=== PATIENT | female | born 1965 | race Caucasian/White ===

== ENCOUNTER 2022-12-27 19:37 | Outpatient (REF) | payer BC, SELFPAY ==
[2023-01-02 15:08] LABS: Age Gdln ACOG Testing Note (.); HPV Aptima Negative (Negative); IGP, Aptima HPV, rfx 16/18,45 Note (.)
== END 2022-12-27 19:38 | disposition home or self-care (01) ==
LOC: LAB 19:37
PROVIDERS: Visit Provider Obstetrics & Gynecology
DX: Z01.419 Encounter for gynecological examination (general) (routine) without abnormal findings (principal)
CPT/HCPCS: 87624; G0145

== ENCOUNTER 2023-12-30 20:38 | Outpatient (REF) | payer BC, SELFPAY | END 2023-12-30 20:39 | disposition home or self-care (01) | LOC: LAB 20:38 | PROVIDERS: Visit Provider Obstetrics & Gynecology | DX: Z01.419 Encounter for gynecological examination (general) (routine) without abnormal findings (principal) | CPT/HCPCS: 87624; 88175 ==

== ENCOUNTER 2025-01-05 18:54 | Outpatient (REF) | payer BC, SELFPAY ==
--- OUTSIDE RECORDS SUMMARY | 2025-01-05 14:00 | XMS_ITS | Encounter Summary ---
Author Organization [facility] Address [address] [place] [address] Care Team Providers Care Courtroom Deputy Or Calendar Clerk Name Role Phone Seamus Groves MD Primary Care Provider [phone] Reason for Visit * Reason Comments Gynecologic Exam Encounter Details Date Type Department Care Team (Late st Contact Info) Description 01/05/2025 2:00 PM EDT Office Visit [facility] [place] [facility] [address] [place] [address] [place] [phone] Magan Evans DO [address] [facility] [place] [address] Well woman exam with routine gynecological exam; Breast cancer screening by mammogram; Osteoporosis, post-menopausal Social History Tobacco Use Types Packs/Day Years Used Date Smoking Tobacco: Former Cigarettes Alcohol Use Standard Drinks/Week Comments Never 0 (1 standard drink = 0.6 oz pur e alcohol) Comments No Sex and Gender Information Value Date Recorded Sex Assigned at Not on file Legal Sex Female 6:47 PM EDT Gender Identity Not on file Sexual Orientation Not on file documented as of this encounter Last Filed Vital Signs Vital Sign Reading Time Taken Comments Blood Pressure 122/78 01/05/2025 2:29 PM EDT Pulse - - Temperature - - Respiratory Rate - - Oxygen Saturation - - Inhaled Oxygen Concentration - - Weight 84.8 kg (187 lb) 01/05/2025 2:29 PM EDT Height 157.5 cm (5' 2 ) 01/05/2025 2:29 PM EDT Body Mass Index 34.2 01/05/2025 2:29 PM EDT documented in this encounter Plan of Treatment Upcoming Encounters Date Type Department Care Team (Late st Contact Info) Description 01/12/2026 2:00 PM EDT Procedure Visit [facility] [address] [place] [place] [address] Magan Evans DO [address] [facility] [place] [address] Scheduled Orders Name Type Priority Associated Diagnoses Orde r Schedule Bilateral screening mammogram Imaging Routine Breast cancer screening by mammogram Expected: 01/05/2025 (Approximate), Expires: 03/07/2026 DEXA bone density Imaging Routine Osteoporosis, post-menopausal Expected: 01/05/2025 (Approximate), Expires: 01/05/2026 THIN PREP TIS PAP AND HR HPV DNA Pathology and Cytology Routine Well woman exam with routine gynecological exam Ordered: 01/05/2025 documented as of this encounter Visit Diagnoses Diagnosis Well woman exam with routine gynecological exam Routine gynecological examination Breast cancer screening by mammogram Osteoporosis, post-menopausal Senile osteoporosis documented in this encounter Care Teams Courtroom Deputy Or Calendar Clerk Relationship Specialty Start Date End Date Seamus Groves MD PCP - General Family Medicine 12/27/22 documented as of this encounter
--- OUTSIDE RECORDS SUMMARY | 2025-01-05 18:57 | XMS_ITS | Clinical Summary ---
Author Organization [employer] tem Address [id number] [address] [place] [address] Care Team Providers Care Internal Investigator Name Role Phone Seamus Groves MD Primary Care Provider [phone] Allergies No known active allergies Medications nystatin (MYCOSTATIN) powderIndicatio ns:Intertrigino us candidiasis Apply 1 Application topically in the morning and 1 Application before bedtime. 30 g 12/27/19 24 Active Additional Information Patient not taking.Reported on 08/06/2024 glimepiride (AMARYL) 1 mg tabletIndicatio ns:Type 2 diabetes mellitus without complication, without long-term current use of insulin ([facility]) take 1 tablet by mouth twice a day with food 180 tablet 3 02/03/20 24 Active albuterol (PROVENTIL HFA;VENTOLIN HFA) 90 mcg/actuation inhaler Inhale 2 puffs every 6 (six) hours as needed for wheezing. 18 g 08/27/19 25 Active empagliflozin (JARDIANCE) 10 mg tablet tabletIndicatio ns:Type 2 diabetes mellitus without complication, without long-term current use of insulin ([facility]) Take 1 tablet (10 mg total) by mouth in the morning. 90 tablet 1 11/04/19 25 Active ALPRAZolam (XANAX) 0.5 mg tabletIndicatio ns:Anxiety Take 1 tablet (0.5 mg total) by mouth every 12 (twelve) hours as needed for anxiety. 60 tablet 2 11/14/19 25 Active metFORMIN (GLUCOPHAGE) 500 mg tablet Take 2 tablets (1,000 mg total) by mouth in the morning and 2 tablets (1,000 mg total) before bedtime. 360 tablet 1 12/31/19 25 Active pantoprazole (PROTONIX) 40 mg EC tablet Take 1 tablet (40 mg total) by mouth in the morning and at bedtime. 180 tablet 1 12/31/19 25 Active atorvastatin (LIPITOR) 20 mg tablet Take 1 tablet (20 mg total) by mouth every morning. 90 tablet 1 12/31/19 25 Active amLODIPine (NORVASC) 10 mg tablet Take 1 tablet (10 mg total) by mouth every morning. 90 tablet 1 12/31/19 25 Active lisinopril-hydr oCHLOROthiazide (PRINZIDE,ZESTO RETIC) 20-25 mg per tablet Take 1 tablet by mouth in the morning. 90 tablet 1 12/31/19 25 Active cyclobenzaprine (FLEXERIL) 10 mg tablet Take 1 tablet (10 mg total) by mouth nightly. 90 tablet 1 12/31/19 25 Active pantoprazole (PROTONIX) 40 mg EC tablet TAKE 1 TABLET (40 MG TOTAL) BY MOUTH IN THE MORNING AND BEFORE BEDTIME 180 tablet 3 01/07/20 24 025 Discontinued atorvastatin (LIPITOR) 20 mg tablet take 1 tablet by mouth every day 90 tablet 3 01/07/20 24 025 Discontinued metFORMIN (GLUCOPHAGE) 500 mg tablet TAKE 2 TABLETS (1,000 MG TOTAL) BY MOUTH IN THE MORNING AND BEFORE BEDTIME. 360 tablet 3 01/07/20 24 025 Discontinued amLODIPine (NORVASC) 10 mg tablet take 1 tablet by mouth every day 90 tablet 3 01/15/20 24 025 Discontinued lisinopril-hydr oCHLOROthiazide (PRINZIDE,ZESTO RETIC) 20-25 mg per tablet take 1 tablet by mouth every day in the morning 90 tablet 3 01/20/20 24 025 Discontinued cyclobenzaprine (FLEXERIL) 10 mg tablet TAKE 1 TABLET BY MOUTH EVERY DAY AT NIGHT 90 tablet 2 04/03/20 24 025 Discontinued Active Problems Problem Noted Date Diagnosed Date Aortic valve stenosis 07/24/2022 Type 2 diabetes mellitus wit hout complication, without long-term current use of insulin 06/30/2020 Essential hypertension 06/30/2020 Mixed hyperlipidemia 06/30/2020 Anxiety 06/30/2020 Encounters Date Type Department Care Team Description 12/30/2024 Refill [facility] [address] [place] [address] Seamus Groves MD 12/01/2024 Telephone [facility] [address] [place] [address] Mary Canseco RMA 11/13/2024 Refill [facility] [address] [place] [address] Mary Canseco RMA Anxiety 10/31/2024 Refill [facility] [address] [place] [address] Seamus Groves MD Type 2 diabetes mellitus without complication, without long-term current use of insulin ([facility]) from Last 3 Months Immunizations Immunization Administration Dates Next Due COVID-19, mRNA, LNP-S, PF, 1 00mcg/0.5mL Dose 03/23/2021,09/14/2020,08/17/2020 COVID-19, mRNA, LNP-S, PF, 30mcg/0.3mL Dose 01/26 Influenza (IM) Preservative Free 05/12/2015 Influenza, Im Trivalent Preservative 03/23/2021 Influenza, Injectable, Mdck, Preservative Free, Quad 02/18/2023 Influenza, Injectable, Quadrivalent 05/03/2020 Influenza, Injectable, quadrivalent (PF) 022,03/12/2017 Family History Medical History Relation Name Comments Diabetes Brother Lung cancer Brother Breast cancer Cousin Heart disease Father Diabetes Maternal Grandfather Diabetes Maternal Grandmother Colon cancer Mother Diabetes Mother Diabetes Sister 1 Liver cancer Sister 1 Alzheimer's disease Sister 2 Relation Name Status Comments Brother Cousin Father Maternal Grandfather Maternal Grandmother Mother Sister 1 Sister 2 Social History Tobacco Use Types Packs/Day Years Used Date Smoking Tobacco: Former Cigarettes Smokeless Tobacco: Never Tobacco Cessation:Counseling Given: No Comments:QUIT 1 YEAR AGO Alcohol Use Standard Drinks/Week Comments Not Currently 0 (1 standard drink = 0.6 oz pur e alcohol) PHQ-2 Answer Date Recorded Total Score 6 08/06/2024 Childcare Answer Date Recorded Childcare Unknown 11/05/2018 Employment Answer Date Recorded Employment Unknown 11/05/2018 Hunger Screening Answer Date Recorded Within the past 12 months we worried whether our food would run out before we got money to buy more. Never True 08/06/2024 Within the past 12 months th e food we bought just didn't last and we didn't have money to get more. Never True 08/06/2024 Purpose - Life Answer Date Recorded Purpose and direction in life Unknown Comments No Sex and Gender Information Value Date Recorded Sex Assigned at Not on file Legal Sex Female 11:26 AM EDT Gender Identity Not on file Sexual Orientation Not on file Last Filed Vital Signs Vital Sign Reading Time Taken Comments Blood Pressure 138/78 08/06/2024 2:37 PM EDT Pulse 117 08/06/2024 2:37 PM EDT Temperature 37.1 C (98.7 F) 08/06/2024 2:37 PM EDT Respiratory Rate 18 08/06/2024 2:37 PM EDT Oxygen Saturation 97% 08/06/2024 2:37 PM EDT Inhaled Oxygen Concentration - - Weight 85.8 kg (189 lb 3.2 oz) 08/06/2024 2:37 P M EDT Height 152.4 cm (5') 08/06/2024 2:37 PM EDT Body Mass Index 36.95 08/06/2024 2:37 PM EDT Plan of Treatment Upcoming Encounters Date Type Department Care Team (Late st Contact Info) Description 01/07/2025 2:30 PM EDT Office Visit [facility] [address] [place] [address] [address] [place] [address] Seamus Groves MD [address] [place] [address], [address] [place] [address] Health Maintenance Due Date Last Done Comments Adult BMI Follow Up Plan 02/06/1982 Diabetic Foot Exam 02/06/1982 DTaP,Tdap and Td Vaccines (1 - Tdap) 02/06/1983 Zoster (Shingles) Vaccine (1 of 2) 02/06/2014 COVID-19 Vaccine (2023-2 5 season) 2024 02/18/2023, 04/16/2022, 03/23/2021, Additional history exists Mammogram 10/28/2024 10/29/2023, 06/0 08/2023, 08/24/2022, Additional history exists Pap Smear 12/29/2024 12/30/2023, 08/0 07/2022, 12/07/2018 Influenza Vaccine 01/25/2025 02/18/2023, , 03/23/2021, Additional history exists Diabetic Ophthalmology Exam 05/29/2025 05/29/2024, 1 06/27/2022 Adult BMI Screening 08/06/2025 08/06/2024 Depression Screening 08/06/2025 08/06/2024 Tobacco Screening 08/06/2025 08/06/2024 Statin Use: Diabetic 12/30/2025 12/30/2024 Colonoscopy 01/22/2029 01/23/2024, 12/26, 01/12/2019, Additional history exists Medical Devices Not on file Procedures Procedure Name Priority Date/Time Associated Diagnosis Comments DIABETES EYE EXAM Routine 05/29/2024 PROVATION COLONOSCOPY Routine 01/23/2024 6:32 AM EDT MAMM DIAGNOSTIC BILATERAL W CAD Routine 10/29/2023 9:21 AM EDT Mass of left breast, unspecified quadrant from Last 3 Months or Most Recently Relevant to Health Maintenance Results * HM DIABETES EYE EXAM (05/29/2024) 05/29/2024 us Scanning Provider External HEALTH MAINTENANCE Fi nal Result MANUALLY TRANSCRIBED RESULTS * Colonoscopy Report (01/23/2024 6:32 AM EDT) Narrative SYSTEMGENERATED, DOCUMENTATION - 01/23/2024 6:32 AM EDT This order has been auto-finalized for image and report archival in PACs. *For full report details, please reach out to your physician. This image is visible to you in MyChart.* us Raman Marin DO IMG OR IMG ORDERABLES Final Result * Mammography diagnostic bilateral with CAD (10/29/2023 9:21 AM EDT) Anatomical Region Laterality Modality Breast Bilateral Mammography 10/29/2023 9:36 AM EDT Narrative 10/29/2023 9:38 AM EDT EXAM: MAMM DIAGNOSTIC BILATERAL W CAD, US BREAST LT LIMITED, 10/29/2023 9:02 AM CLINICAL INDICATIONS: Tenderness of left breast, unspecified quadrant, COMPARISON: Mammogram 08/24/2022 TECHNIQUE: Bilateral digital tomosynthesis MLO and CC views of the breasts were obtained, with creation of synthetic 2D views. Computer aided detection was utilized. In addition, targeted sonography of the left breast 6:00 position performed at the site of tenderness. FINDINGS: There are scattered areas of fibroglandular density. On mammography and targeted sonography, no abnormality seen at the site of pain at the 6:00 position left breast. There are no suspicious masses, calcifications, or areas of architectural distortions. IMPRESSION: No mammographic evidence of malignancy. BI-RADS: BI-RADS 1 - Negative Recommendation: Routine screening mammogram in 1 year Patient was given the results before leaving the department. Finalized by Rohan Estrada MD on 10/29/2023 9:38 AM 1 b MAMM 1 YR Procedure Note Rohan Estrada MD - 10/29/2023 EXAM: MAMM DIAGNOSTIC BILATERAL W CAD, US BREAST LT LIMITED, 10/29/2023 9:02AM CLINICAL INDICATIONS: Tenderness of left breast, unspecified quadrant, COMPARISON: Mammogram 08/24/2022 TECHNIQUE: Bilateral digital tomosynthesis MLO and CC views of the breasts wereobtained, with creation of synthetic 2D views. Computer aided detectionwas utilized. In addition, targeted sonography of the left breast 6:00position performed at the site of tenderness. FINDINGS: There are scattered areas of fibroglandular density. On mammography and targeted sonography, no abnormality seen at the site ofpain at the 6:00 position left breast. There are no suspicious masses, calcifications, or areas of architecturaldistortions. IMPRESSION: No mammographic evidence of malignancy. BI-RADS: BI-RADS 1 - Negative Recommendation: Routine screening mammogram in 1 year Patient was given the results before leaving the department. Finalized by Rohan Estrada MD on 10/29/2023 9:38 AM 1 b MAMM 1 YR us Seamus Groves MD IMG MAMMOGRAPHY ORDERABLES Fi nal Result from Last 3 Months or Most Recently Relevant to Health Maintenance Insurance [employer] Care Teams Internal Investigator Relationship Specialty Start Date End Date Seamus Groves MD [address] [place] [address], [address] [place] [address] PCP - General Pediatrics 03/18/17
--- OUTSIDE RECORDS SUMMARY | 2025-01-05 18:57 | XMS_ITS | Encounter Summary ---
Author Organization [employer] Address [id number] [address] [place] [address] Care Team Providers Care Forest Fire Management Officer Name Role Phone Seamus Groves MD Primary Care Provider [phone] Encounter Details Date Type Department Care Team (Late Contact Info) Description 09/06/2020 Orders Only [facility] [address] [place] [address] [address] [place] [address] Seamus Groves MD [address] [place] [address], [address] [place], [place] [id number] Febrile illness Social History Tobacco Use Types Packs/Day Years Used Date Smoking Tobacco: Former Cigarettes Smokeless Tobacco: Never Comments:QUIT 1 YEAR AGO Alcohol Use Standard Drinks/Week Comments Yes 0 (1 standard drink = 0.6 oz pur e alcohol) RARE PHQ-2 Answer Date Recorded Total Score 0 06/30/2020 Childcare Answer Date Recorded Childcare Unknown 11/05/2018 Employment Answer Date Recorded Employment Unknown 11/05/2018 Purpose - Life Answer Date Recorded Purpose and direction in life Unknown Comments No Sex and Gender Information Value Date Recorded Sex Assigned at Not on file Legal Sex Female 11:26 AM EDT Gender Identity Not on file Sexual Orientation Not on file COVID-19 Exposure Response Date Recorded In the last month, have you been in contact with someone who was confirmed or suspected to have Coronavirus / COVID-19? No / Unsure 08/09/2020 2:12 PM EDT documented as of this encounter Plan of Treatment Upcoming Encounters Date Type Department Care Team (Late st Contact Info) Description 01/07/2025 2:30 PM EDT Office Visit [facility] [address] [place] [address] [address] [place] [phone] Seamus Groves MD [facility], [address] [place] [phone] documented as of this encounter Procedures Procedure Name Priority Date/Time Associated Diagnosis Comments SARS COV 2 (COVID-19) STAT 09/05/2020 Febrile illness documented in this encounter Results * SARS COV 2 (COVID-19)[Lab Collect] (09/05/2020) EXTERNAL SARS COV 2 Negative Negative SUNQUEST NASOPHARYNGEAL 09/05/2020 us Seamus Groves MD MICROBIOLOGY - GENERAL ORDERA BLES Final Result SUNQUEST documented in this encounter Visit Diagnoses Diagnosis Febrile illness documented in this encounter Additional Health Concerns Infection Onset Date Last Indicated Resolved Time COVID-19 Rule-Out 09/06/2020 09/05/2020 09/06/2020 3:09 PM EDT Assessment Noted Time PHQ-9 Depression Total Score: 0 06/30/19 21 12:26 PM EST documented as of this encounter Care Teams Forest Fire Management Officer Relationship Specialty Start Date End Date Seamus Groves MD [facility], [address] [place] [phone] PCP - General Pediatrics 03/18/17 documented as of this encounter
--- OUTSIDE RECORDS SUMMARY | 2025-01-05 18:57 | XMS_ITS | Clinical Summary ---
Author Organization [facility] Address [address] [place] [address] Care Team Providers Care Log Manager Name Role Phone Seamus Groves MD Primary Care Provider [phone] Allergies No known active allergies Medications ALPRAZolam (Xanax) 0.5 MG tablet Take 0.5 mg by mouth every 12 (twelve) hours if needed. 12/20/2022 Active amLODIPine (Norvasc) 10 MG tablet Take 1 tablet by mouth in the morning. 08/01/2022 Active atorvastatin (Lipitor) 20 MG tablet Take 1 tablet by mouth in the morning. 07/20/2022 Active cyclobenzaprine (Flexeril) 10 MG tablet Take 10 mg by mouth at bedtime. 12/20/2022 Active glimepiride (Amaryl) 1 MG tablet Take 1 tablet by mouth in the morning and 1 tablet in the evening. Take with meals. 08/13/2022 Active lisinopril-hydr oCHLOROthiazide 20-25 MG tablet Take 1 tablet by mouth in the morning. 08/01/2022 Active metFORMIN (Glucophage) 500 MG tablet TAKE 2 TABLETS (1,000 MG TOTAL) BY MOUTH IN THE MORNING AND BEFORE BEDTIME. 07/25/2022 Active pantoprazole (ProtoNix) 40 MG EC tablet Take 1 tablet by mouth in the morning. 08/01/2022 Active Encounters Date Type Department Care Team Description 01/05/2025 2:00 PM EDT Office Visit [facility] [place] [facility] [address] [place] [address] [place] [phone] Magan Evans DO Well woman exam with routine gynecological exam; Breast cancer screening by mammogram; Osteoporosis, post-menopausal 01/05/2025 Bamboo flowsheet [facility] [address] [place] [address] [place] [address] Magan Evans DO from Last 3 Months Family History Medical History Relation Name Comments Cancer Mother liver, uterus Diabetes Mother Hypertension Mother Relation Name Status Comments Father Mother Social History Tobacco Use Types Packs/Day Years Used Date Smoking Tobacco: Former Cigarettes Tobacco Cessation:Counseling Given: Not Answered Alcohol Use Standard Drinks/Week Comments Never 0 [...] Mass Index 34.2 01/05/2025 2:29 PM EDT Plan of Treatment Upcoming Encounters Date Type Department Care Team (Late st Contact Info) Description 01/12/2026 2:00 PM EDT Procedure Visit [facility] [address] [place] [address] Magan Evans DO [address] [facility] [place] [address] Health Maintenance Due Date Last Done Comments CT Colonography 1964 FIT-DNA 1964 FIT 1964 FOBT 1965 Sigmoidoscopy 1965 Mammogram 10/28/2024 10/29/2023, 07/27, 08/09/2021, Additional history exists Influenza Vaccine (#1) 2025 , 04/16/2022, 03/23/2021, Additional history exists Pap Smear 12/29/2026 12/30/2023, 12/27/2022, 11/24 Cervical Cancer Screening 01/10/2028 HPV/Cotest 01/10/2028 01/09/2023 Colonoscopy 01/22/2034 01/23/2024 Colorectal Cancer Screening 01/22/2034 Procedures Procedure Name Priority Date/Time Associated Diagnosis Comments PAP SMEAR Routine 12/30/2023 12:00 AM EDT THINPREP PAP AND HPV MRNA E6/E7 W/RFL HPV 16,18/45 Routine 01/09/2023 2:08 PM EDT Well woman exam with routine gynecological exam from Last 3 Months or Most Recently Relevant to Health Maintenance Results * Pap Smear (12/30/2023 12:00 AM EDT) Swab Cervical swab / Unknown us Magan Cristina DO LAB CYTOLOGY ORDERABLES Final Re sult Performing Organization Address City/[facility]/ZIP Co de Phone Number EXTERNAL LAB * THINPREP PAP AND HPV MRNA E6/E7 W/RFL HPV 16,18/45 (01/09/2023 2:08 PM EDT) us Magan Cristina DO LAB BLOOD ORDERABLES Final Resul t Performing Organization Address City/[facility]/ZIP Co de Phone Number EXTERNAL LAB from Last 3 Months or Most Recently Relevant to Health Maintenance Insurance [facility] Care Teams Log Manager Relationship Specialty Start Date End Date Seamus Groves MD PCP - General Family Medicine 12/27/22
--- OUTSIDE RECORDS SUMMARY | 2025-01-05 18:57 | XMS_ITS | Encounter Summary ---
Author Organization [employer] Address [id number] [address] [place] [address] Care Team Providers Care Deputy Bailiff Name Role Phone Seamus Groves MD Primary Care Provider [phone] Reason for Visit * Reason Onset Date Comments Med Refill 08/18/2020 Encounter Details Date Type Department Care Team (Late st Contact Info) Description 08/18/2020 Refill [facility] [address] [place] [address] [address] [place] [phone] Seamus Groves MD [address] [place] [address], [address] [place], [place] [id number] Social History Tobacco Use Types Packs/Day Years [...] PM EDT documented as of this encounter Miscellaneous Notes * Telephone Encounter - VIDA Booker - 08/18/2020 12:38 PM EDT Already sent documented in this encounter Plan of Treatment Upcoming Encounters Date Type Department Care Team (Late st Contact Info) Description 01/07/2025 2:30 PM EDT Office Visit [facility] [address] [place] [address] [address] [place] [address] Seamus Groves MD [address] [place] [address], [address] [place], [place] [phone] documented as of this encounter Visit Diagnoses Not on filedocumented in this encounter Additional Health Concerns Infection Onset Date Last Indicated Resolved Time COVID-19 Rule-Out 09/06/2020 09/05/2020 09/06/2020 3:09 PM EDT Assessment Noted Time PHQ-9 Depression Total Score: 0 06/30/19 21 12:26 PM EST documented as of this encounter Care Teams Deputy Bailiff Relationship Specialty Start Date End Date Seamus Groves MD [address] [place] [address], [address] [place] [address] PCP - General Pediatrics 03/18/17 documented as of this encounter
--- OUTSIDE RECORDS SUMMARY | 2025-01-05 18:57 | XMS_ITS | Encounter Summary ---
Author Organization [place] Sys tem Address [id number] [address] [place] [address] Care Team Providers Care Salmon Troll Fisher Name Role Phone Seamus Groves MD Primary Care Provider [phone] Reason for Visit * Reason Comments Med Refill Encounter Details Date Type Department Care Team (Late st Contact Info) Description 11/20/2023 Refill [facility] [address] [place] [phone] Seamus Groves MD [address] [place] [address], [address] [place], [place] [id number] Social History Tobacco Use Types Packs/Day Years Used Date Smoking Tobacco: Former Cigarettes Smokeless Tobacco: Never Comments:QUIT 1 YEAR AGO Alcohol Use Standard Drinks/Week Comments Yes 0 (1 standard drink = 0.6 oz pur e alcohol) RARE PHQ-2 Answer Date Recorded Total Score 0 12/25/2022 Childcare Answer Date Recorded Childcare Unknown 11/05/2018 Employment Answer Date Recorded Employment Unknown 11/05/2018 Hunger Screening Answer Date Recorded Within the past 12 months we worried whether our food would run out before we got money to buy more. Never True 12/25/2022 Within the past 12 months th e food we bought just didn't last and we didn't have money to get more. Never True 12/25/2022 Purpose - Life Answer Date Recorded Purpose and direction in life Unknown Comments No Sex and Gender Information Value Date Recorded Sex Assigned at Not on file Legal Sex Female 11:26 AM EDT Gender Identity Not on file Sexual Orientation Not on file documented as of this encounter Miscellaneous Notes * Telephone Encounter - Shoshana Rodriguez CMA - 11/20/2023 12:46 AM EDT Too soon to refill documented in this encounter Plan of Treatment Upcoming Encounters Date Type Department Care Team (Late st Contact Info) Description 01/07/2025 2:30 PM EDT Office Visit [facility] [address] [place] [address] [address] [place] [address] Seamus Groves MD [address] [place] [address], [address] [place], [place] [phone] documented as of this encounter Visit Diagnoses Not on filedocumented in this encounter Additional Health Concerns Assessment Noted Time PHQ-9 Depression Total Score: 0 12/26/19 23 1:32 PM EDT documented as of this encounter Care Teams Salmon Troll Fisher Relationship Specialty Start Date End Date Seamus Groves MD [address] [place] [address], [address] [place], [place] [phone] PCP - General Pediatrics 03/18/17 documented as of this encounter
--- OUTSIDE RECORDS SUMMARY | 2025-01-05 18:57 | XMS_ITS | Encounter Summary ---
Author Organization [employer] Sys [employer] Address [id number] [address] [place] [address] Care Team Providers Care Learning Coach Name Role Phone Seamus Groves MD Primary Care Provider [phone] Reason for Visit * Reason Comments Med Refill Encounter Details Date Type Department Care Team (Late st Contact Info) Description 01/12/2023 Refill [facility] [address] [place] [address] Seamus Groves MD [address] [place] [address], [address] [place], [place] [phone] Social History Tobacco Use Types Packs/Day Years [...] Telephone Encounter - Shoshana Rodriguez CMA - 01/12/2023 7:45 AM EDT Too soon to refill documented in this encounter Plan of Treatment Upcoming Encounters Date Type Department Care Team (Late st Contact Info) Description 01/07/2025 2:30 PM EDT Office Visit [facility] [address] [place] [address] [address] [place] [address] Seamus Groves MD [address] [place] [address], [address] [place], [place] [phone] documented as of this encounter Visit Diagnoses Not on filedocumented in this encounter Additional Health Concerns Assessment Noted Time PHQ-9 Depression Total Score: 0 12/26/19 1:32 PM EDT documented as of this encounter Care Teams Learning Coach Relationship Specialty Start Date End Date Seamus Groves MD [address] [place] [address], [address] [place] [phone] PCP - General Pediatrics 03/18/17 documented as of this encounter
--- OUTSIDE RECORDS SUMMARY | 2025-01-05 18:57 | XMS_ITS | Encounter Summary ---
Author Organization [facility] Address [address] [place] [address] Care Team Providers Care Pattern Changer Name Role Phone Seamus Groves MD Primary Care Provider [phone] Encounter Details Date Type Department Care Team (Late Contact Info) Description 01/08/2024 Orders Only [facility] [address] [place] [address] [place] [address] Emily [place] LPN Social History Tobacco Use Types Packs/Day Years [...] on file documented as of this encounter Plan of Treatment Upcoming Encounters Date Type Department Care Team (Late Contact Info) Description 01/12/2026 2:00 PM EDT Procedure Visit [facility] [address] [place] [address] [place] [address] Magan Evans DO [address] [facility] [address] [place], [place] [id number] documented as of this encounter Procedures Procedure Name Priority Date/Time Associated Diagnosis Comments PAP SMEAR Routine 12/30/2023 12:00 AM EDT documented in this encounter Results * Pap Smear (12/30/2023 12:00 AM EDT) Swab Cervical swab / Unknown us Magan Evans DO LAB CYTOLOGY ORDERABLES Final Re sult EXTERNAL LAB documented in this encounter Visit Diagnoses Not on filedocumented in this encounter Care Teams Pattern Changer Relationship Specialty Start Date End Date Seamus Groves MD PCP - General Family Medicine 12/27/22 documented as of this encounter
--- OUTSIDE RECORDS SUMMARY | 2025-01-05 18:57 | XMS_ITS | Encounter Summary ---
Author Organization [employer] Sys tem Address [id number] [address] [place] [address] Care Team Providers Care Unit Assistant Name Role Phone Seamus Groves MD Primary Care Provider [phone] Encounter Details Date Type Department Care Team (Late st Contact Info) Description 04/29/2023 Orders Only [facility] Aurelio CASTRO [facility] 1 [place] [phone] External, Scanning Provider Social History Tobacco Use Types Packs/Day Years [...] EDT Office Visit [facility] Aurelio CASTRO [address] [place] [address] Seamus Groves MD [address] [place] [address], [address] [place], [place] [phone] documented as of this encounter Procedures Procedure Name Priority Date/Time Associated Diagnosis Comments DIABETES EYE EXAM Routine 04/26/2023 documented in this encounter Results * DIABETES EYE EXAM (04/26/2023) 04/26/2023 us Scanning Provider External HEALTH MAINTENANCE nal Result MANUALLY TRANSCRIBED RESULTS documented in this encounter Visit Diagnoses Not on filedocumented in this encounter Additional Health Concerns Assessment Noted Time PHQ-9 Depression Total Score: 0 12/26/19 23 1:32 PM EDT documented as of this encounter Care Teams Unit Assistant Relationship Specialty Start Date End Date Seamus Groves MD [address] [place] [address], [address] [place], [place] [phone] PCP - General Pediatrics 03/18/17 documented as of this encounter
--- OUTSIDE RECORDS SUMMARY | 2025-01-05 18:57 | XMS_ITS | Encounter Summary ---
Author Organization [employer] Sys [employer] Address [id number] [address] [place] [address] Care Team Providers Care Technical Education Teacher Name Role Phone Seamus Groves MD Primary Care Provider [phone] Encounter Details Date Type Department Care Team (Late st Contact Info) Description 06/02/2024 Orders Only [facility] Aurelio CASTRO [facility] 1 [place] [phone] External, Scanning Provider Social History Tobacco Use Types Packs/Day Years Used Date Smoking Tobacco: Former Cigarettes Smokeless Tobacco: Never Comments:QUIT 1 YEAR AGO Alcohol Use Standard Drinks/Week Comments Not Currently 0 (1 standard drink = 0.6 oz pur e alcohol) PHQ-2 Answer Date Recorded Total Score 0 12/27/2023 Childcare Answer Date Recorded Childcare Unknown 11/05/2018 Employment Answer Date Recorded Employment Unknown 11/05/2018 Hunger Screening Answer Date Recorded Within the past 12 months we worried whether our food would run out before we got money to buy more. Never True 12/27/2023 Within the past 12 months th e food we bought just didn't last and we didn't have money to get more. Never True 12/27/2023 Purpose - Life Answer Date Recorded Purpose [...] Physicians Internal Medicine/Pediatrics Aurelio CASTRO [address] [place] [address] Seamus Groves MD [address] [place] [address], [address] [place], [place] [phone] documented as of this encounter Procedures Procedure Name Priority Date/Time Associated Diagnosis Comments DIABETES EYE EXAM Routine 05/29/2024 documented in this encounter Results * DIABETES EYE EXAM (05/29/2024) 05/29/2024 us Scanning Provider External HEALTH MAINTENANCE nal Result MANUALLY TRANSCRIBED RESULTS documented in this encounter Visit Diagnoses Not on filedocumented in this encounter Additional Health Concerns Assessment Noted Time PHQ-9 Depression Total Score: 0 12/27/19 24 1:19 PM EDT documented as of this encounter Care Teams Technical Education Teacher Relationship Specialty Start Date End Date Seamus Groves MD [address] [place] [address], [address] [place], [place] [phone] PCP - General Pediatrics 03/18/17 documented as of this encounter
--- OUTSIDE RECORDS SUMMARY | 2025-01-05 18:57 | XMS_ITS | Encounter Summary ---
Author Organization [employer] Sys [employer] Address [id number] [address] [place] [address] Care Team Providers Care Tumbler Plater Name Role Phone Seamus Groves MD Primary Care Provider Encounter Details Date Type Department Care Team (Late st Contact Info) Description 02/20/2023 Orders Only [facility] Aurelio CASTRO [facility] 1 [place] [phone] External, Scanning Provider Social History Tobacco Use [...] Physicians Internal Medicine/Pediatrics Aurelio CASTRO [address] [place] [address] Seamus Groves MD [facility], [address] [place], [place] [phone] documented as of this encounter Procedures Procedure Name Priority Date/Time Associated Diagnosis Comments HM DEXA SCAN Routine 01/29/2023 documented in this encounter Results * HM DEXA SCAN (01/29/2023) Anatomical Region Laterality Modality Other 01/29/2023 us Scanning Provider External HEALTH MAINTENANCE Fi nal Result documented in this encounter Visit Diagnoses Not on filedocumented in this encounter Additional Health Concerns Assessment Noted Time PHQ-9 Depression Total Score: 0 12/26/19 23 1:32 PM EDT documented as of this encounter Care Teams Tumbler Plater Relationship Specialty Start Date End Date Seamus Groves MD [facility], [address] [place], [place] [phone] PCP - General Pediatrics 03/18/17 documented as of this encounter
--- OUTSIDE RECORDS SUMMARY | 2025-01-05 18:57 | XMS_ITS | Encounter Summary ---
Author Organization [employer] Address [id number] [address] [place] [address] Care Team Providers Care Sane Rn Name Role Phone Seamus Groves MD Primary Care Provider [phone] Reason for Visit * Reason Comments Med Refill Encounter Details Date Type Department Care Team (Late st Contact Info) Description 01/19/2023 Refill [facility] [address] [place] [phone] Seamus Groves MD [address] [place] [address], [address] [place], [place] [phone] Social History Tobacco Use Types Packs/Day Years [...] Telephone Encounter - Shoshana Rodriguez CMA - 01/19/2023 3:57 PM EDT duplicate documented in this encounter Plan of Treatment Upcoming Encounters Date Type Department Care Team (Late st Contact Info) Description 01/07/2025 2:30 PM EDT Office Visit [facility] [address] [place] [address] [address] [place] [address] Seamus Groves MD [address] [place] [address], [address] [place] [address] documented as of this encounter Visit Diagnoses Not on filedocumented in this encounter Additional Health Concerns Assessment Noted Time PHQ-9 Depression Total Score: 0 12/26/19 23 1:32 PM EDT documented as of this encounter Care Teams Sane Rn Relationship Specialty Start Date End Date Seamus Groves MD [address] [place] [address], [address] [place], [place] [phone] PCP - General Pediatrics 03/18/17 documented as of this encounter
--- OUTSIDE RECORDS SUMMARY | 2025-01-05 18:57 | XMS_ITS | Encounter Summary ---
Author Organization [facility] Address [address] [place] [address] Care Team Providers Care Fisher Gill Net Name Role Phone Seamus Groves MD Primary Care Provider Encounter Details Date Type Department Care Team (Late Contact Info) Description 01/05/2025 Bamboo flowsheet [facility] [address] [place] [place] [phone] Magan Evans DO [address] [place] [address] Social History Tobacco Use Types Packs/Day Years [...] 2:00 PM EDT Procedure Visit [facility] [address] [place] [address] Magan Evans DO [address] [place] [id number] documented as of this encounter Visit Diagnoses Not on filedocumented in this encounter Care Teams Fisher Gill Net Relationship Specialty Start Date End Date Seamus Groves MD PCP - General Family Medicine 12/27/22 documented as of this encounter
--- OUTSIDE RECORDS SUMMARY | 2025-01-05 18:57 | XMS_ITS | Encounter Summary ---
Author Organization [facility] Sys [facility] Address [id number] [address] [place] [address] Care Team Providers Care Hub Associate Name Role Phone Seamus Groves MD Primary Care Provider [phone] Reason for Visit * Reason Comments Med Refill Encounter Details Date Type Department Care Team (Late st Contact Info) Description 02/08/2022 Refill [facility] [address] [place] [address] Seamus Groves MD [address] [place] [address], [address] [place], [place] [phone] Social History Tobacco Use Types Packs/Day Years [...] have Coronavirus / COVID-19? No / Unsure 01/23/2022 11:20 AM EDT documented as of this encounter Miscellaneous Notes * Telephone Encounter - Shoshana Rodriguez CMA - 02/08/2022 12:17 AM EDT duplicate documented in this encounter Plan of Treatment Upcoming Encounters Date Type Department Care Team (Late st Contact Info) Description 01/07/2025 2:30 PM EDT Office Visit [facility] [address] [place] [address] [address] [place] [phone] Seamus Groves MD [address] [place] [address], [address] [place] [address] documented as of this encounter Visit Diagnoses Not on filedocumented in this encounter Additional Health Concerns Assessment Noted Time PHQ-9 Depression Total Score: 0 06/30/19 21 12:26 PM EST documented as of this encounter Care Teams Hub Associate Relationship Specialty Start Date End Date Seamus Groves MD [address] [place] [address], [address] [place] [address] PCP - General Pediatrics 03/18/17 documented as of this encounter
--- OUTSIDE RECORDS SUMMARY | 2025-01-05 18:57 | XMS_ITS | Encounter Summary ---
Author Organization [facility] Address [address] [place] [address] Care Team Providers Care Convertible Top Installer Name Role Phone Seamus Groves MD Primary Care Provider [phone] Encounter Details Date Type Department Care Team (Late Contact Info) Description 10/29/2023 Abstract [facility] [address] [facility] [place] [address] [place] [address] Cathie Coffey LPN [address] [facility] [place] [address] Social History Tobacco Use Types Packs/Day Years [...] Description 01/12/2026 2:00 PM EDT Procedure Visit [facility] [address] [facility] [place] [address] [place] [address] Magan Evans DO [address] [facility] [address] [place] [id number] documented as of this encounter Visit Diagnoses Not on filedocumented in this encounter Care Teams Convertible Top Installer Relationship Specialty Start Date End Date Seamus Groves MD PCP - General Family Medicine 12/27/22 documented as of this encounter
--- OUTSIDE RECORDS SUMMARY | 2025-01-05 18:57 | XMS_ITS | Encounter Summary ---
Author Organization [facility] Sys tem Address [id number] [address] [place] [address] Care Team Providers Care Lay Out Carpenter Name Role Phone Seamus Groves MD Primary Care Provider [phone] Reason for Visit * Reason Comments Med Refill Encounter Details Date Type Department Care Team (Late st Contact Info) Description 12/30/2024 Refill [facility] [address] [place] [address] Seamus Groves MD [address] [place] [address], [address] [place], [place] [phone] Social History Tobacco Use Types Packs/Day Years [...] * Telephone Encounter - VIDA Booker - 12/30/2024 12:27 AM EDT Refill request. documented in this encounter Plan of Treatment Upcoming Encounters Date Type Department Care Team (Late st Contact Info) Description 01/07/2025 2:30 PM EDT Office Visit [facility] [address] [place] [address] [address]WA [address] [place] [address] Seamus Groves MD [address] [place] [address], [address] [place] [address] documented as of this encounter Visit Diagnoses Not on filedocumented in this encounter Additional Health Concerns Assessment Noted Time PHQ-9 Depression Total Score: 6 08/07/19 25 2:35 PM EDT documented as of this encounter Care Teams Lay Out Carpenter Relationship Specialty Start Date End Date Seamus Groves MD [address] [place] [address], [address] [place], [place] [phone] PCP - General Pediatrics 03/18/17 documented as of this encounter
--- OUTSIDE RECORDS SUMMARY | 2025-01-05 18:57 | XMS_ITS | Encounter Summary ---
Author Organization [facility] Address [address] [place] [address] Care Team Providers Care Account Development Associate Name Role Phone Seamus Groves MD Primary Care Provider [phone] Encounter Details Date Type Department Care Team (Late Contact Info) Description 12/23/2023 Orders Only [facility] [place] [address] [place] [address] Cathie Coffey LPN [address] [facility] [place] [address] Social History Tobacco Use Types Packs/Day Years [...] EDT Procedure Visit [facility] [address] [place] [place] [address] [place] [address] Magan Evans DO [address] [facility] [address] [place] [id number] documented as of this encounter Procedures Procedure Name Priority Date/Time Associated Diagnosis Comments PAP SMEAR Routine 12/27/2022 12:00 AM EDT documented in this encounter Results * Pap Smear (12/27/2022 12:00 AM EDT) Swab Cervical swab / Unknown us Cristina Nurse [facility] LAB CYTOLOGY ORDERABLES Final Result EXTERNAL LAB documented in this encounter Visit Diagnoses Not on filedocumented in this encounter Care Teams Account Development Associate Relationship Specialty Start Date End Date Seamus Groves MD PCP - General Family Medicine 12/27/22 documented as of this encounter
--- OUTSIDE RECORDS SUMMARY | 2025-01-05 18:57 | XMS_ITS | Encounter Summary ---
Author Organization [employer] Address [id number] [address] [place] [address] Care Team Providers Care Shirt Ironer Name Role Phone Seamus Groves MD Primary Care Provider [phone] Reason for Visit * Reason Comments Med Refill Encounter Details Date Type Department Care Team (Late st Contact Info) Description 07/10/2022 Refill [facility] [address] [place] [address] 1 [place] [address] Seamus Groves MD [address] [place] [address], [address] [place], [place] [phone] Type 2 diabetes mellitus without complication, without long-term current use of insulin ([facility]) Social History Tobacco Use Types Packs/Day Years [...] Telephone Encounter - Shoshana Rodriguez CMA - 07/10/2022 11:34 AM EST Patient needs an appointment for further refills documented in this encounter Plan of Treatment Upcoming Encounters Date Type Department Care Team (Late st Contact Info) Description 01/07/2025 2:30 PM EDT Office Visit [facility] [address] [place] [address] [address] [place] [address] Seamus Groves MD [address] [place] [address], [address] [place], [place] [phone] documented as of this encounter Visit Diagnoses Diagnosis Type 2 diabetes mellitus without complication, without long-term current use of insulin ([facility]) documented in this encounter Additional Health Concerns Assessment Noted Time PHQ-9 Depression Total Score: 0 06/30/19 21 12:26 PM EST documented as of this encounter Care Teams Shirt Ironer Relationship Specialty Start Date End Date Seamus Groves MD [address] [place] [address], [address] [place], [place] [phone] PCP - General Pediatrics 03/18/17 documented as of this encounter
--- OUTSIDE RECORDS SUMMARY | 2025-01-05 18:57 | XMS_ITS | Encounter Summary ---
Author Organization [employer] Sys [employer] Address [id number] [address] [place] [address] Care Team Providers Care Batch And Furnace Manager Name Role Phone Seamus Groves MD Primary Care Provider [phone] Reason for Visit * Reason Comments Med Refill Encounter Details Date Type Department Care Team (Late st Contact Info) Description 07/17/2022 Refill [facility] [address] [place] [address] Seamus Groves MD [address] [place] [address], 1 [place], [place] [phone] Social History Tobacco Use Types Packs/Day Years [...] Telephone Encounter - Shoshana Rodriguez CMA - 07/17/2022 5:07 PM EST duplicate documented in this encounter Plan of Treatment Upcoming Encounters Date Type Department Care Team (Late st Contact Info) Description 01/07/2025 2:30 PM EDT Office Visit [facility] [address] [place] [address] [address] [facility] [place] [address] Seamus Groves MD [address] [place] [address], [address] [place] [address] documented as of this encounter Visit Diagnoses Not on filedocumented in this encounter Additional Health Concerns Assessment Noted Time PHQ-9 Depression Total Score: 0 06/30/19 21 12:26 PM EST documented as of this encounter Care Teams Batch And Furnace Manager Relationship Specialty Start Date End Date Seamus Groves MD [address] [place] [address], [address] [place], [place] [phone] PCP - General Pediatrics 03/18/17 documented as of this encounter
--- OUTSIDE RECORDS SUMMARY | 2025-01-05 18:57 | XMS_ITS | Encounter Summary ---
Author Organization [facility] Address [address] [place] [address] Care Team Providers Care Powerhouse Oiler Name Role Phone Moon Groves MD Primary Care Provider [phone] Encounter Details Date Type Department Care Team (Late st Contact Info) Description 10/29/2023 External Result Encounter [facility] External [facility] Unsolicited Provider, Generic External Data Social History Tobacco Use Types Packs/Day Years [...] 01/12/2026 2:00 PM EDT [facility] [address] [place] [id number] Anna Evans DO [address] [place] [address] documented as of this encounter Procedures Procedure Name Priority Date/Time Associated Diagnosis Comments BI US BREAST LIMITED LEFT 10/29/2023 9:39 AM EDT documented in this encounter Results * Left breast US limited (10/29/2023 9:39 AM EDT) Anatomical Region Laterality Modality Breast Left Ultrasound 10/29/2023 9:39 AM EDT Narrative 10/29/2023 9:38 AM EDT THIS EXAM WAS PERFORMED AT [facility] EXAM: MAMM DIAGNOSTIC BILATERAL W CAD, US [...] 9:38 AM 1 b MAMM 1 YR The copy-to physician of this order is ANNA Ramirez The ordering physician of this order is MOON Newby Procedure Note Radiology, Radiologist, MD - 10/29/2023 THIS EXAM WAS PERFORMED AT [facility] EXAM: MAMM DIAGNOSTIC BILATERAL W CAD, US [...] 9:38 AM 1 b MAMM 1 YR The copy-to physician of this order is ANNA Ramirez The ordering physician of this order is MOON Newby us Generic External Data Provider IMG US PROCEDURES Final Result documented in this encounter Visit Diagnoses Not on filedocumented in this encounter Care Teams Powerhouse Oiler Relationship Specialty Start Date End Date Moon Groves MD PCP - General Family Medicine 12/27/22 documented as of this encounter
--- OUTSIDE RECORDS SUMMARY | 2025-01-05 18:58 | XMS_ITS | CCD ---
Author Organization [facility] CliniSyar Care Team Providers Care Biological Chemist Name Role Phone ERICA, DR MOON Waggoner Primary Care Unavailable HIESTAND, DR MOON Waggoner Admitting Unavailable HIESTAND, DR MOON Waggoner Attending Unavailable HIESTAND, DR MOON Waggoner Consulting Unavailable HIESTAND, DR MOON Waggoner Consulting Unavailable HIESTAND, DR MOON Waggoner Primary Care Unavailable HIESTAND, DR MOON Waggoner Admitting Unavailable HIESTAND, DR MOON Waggoner Attending Unavailable ANNA DECKER Attending Unavailable Moon Maldonado MD Primary Care Provider MOON MALDONADO Referring Unavailable MOON MALDONADO Primary Care Unavailable MOON MALDONADO Attending Unavailable MOON MALDONADO Referring Unavailable MOON MALDONADO Primary Care Unavailable MOON MALDONADO Attending Unavailable MOON MALDONADO Referring Unavailable MOON MALDONADO Primary Care Unavailable MOON MALDONADO Referring Unavailable MOON MALDONADO Primary Care Unavailable MOON MALDONADO Attending Unavailable MOON MALDONADO Referring Unavailable MOON MALDONADO Primary Care Unavailable MOON MALDONADO Referring Unavailable MOON MALDONADO Primary Care Unavailable MOON MALDONADO Referring Unavailable MOON MALDONADO Primary Care Unavailable GAGE SHANNON Admitting Unavailable GAGE SHANNON Attending Unavailable HIESTMOON WILLSON Primary Care Unavailable GAGE SHANNON Attending Unavailable GAGE SHANNON Referring Unavailable MOON MALDONADO Primary Care Unavailable CINDY ARENAS Attending Unavailable MOON MALDONADO Primary Care Unavailable MOON MALDONADO Referring Unavailable MOON MALDONADO Primary Care Unavailable MOON MALDONADO Attending Unavailable MOON MALDONADO Referring Unavailable MOON MALDONADO Primary Care Unavailable MOON MALDONADO Attending Unavailable MOON MALDONADO Referring Unavailable MOON MALDONADO Primary Care Unavailable SUKHI CARSON Attending Unavailable HIESTAND, RAMONA Referring Unavailable MOON MALDONADO Primary Care Unavailable MOON MALDONADO Attending Unavailable MOON MALDONADO Referring Unavailable MOON MALDONADO Primary Care Unavailable MOON MALDONADO Attending Unavailable MOON MALDONADO Referring Unavailable MOON MALDONADO Primary Care Unavailable MOON MALDONADO Attending Unavailable MOON MALDONADO Referring Unavailable MOON MALDONADO Primary Care Unavailable Moon Maldonado MD Primary Care Provider Moon Maldonado MD Primary Care Provider Medications Current Medications Medication Drug Class(es) Dates Sig (Normalized) Sig (Original) [id number] 200 actuat albuterol 0.09 mg/actuat metered dose inhaler (5 sources) beta2-Adrenergic Agonist Start: 08-26-2024 take 2 puff(s) by inhalation every six hours as needed for wheezing albuterol (PROVENTIL HFA;VENTOLIN HFA) 90 mcg/actuation inhaler Inhale 2 puffs every 6 (six) hours as needed for wheezing. 18 g 08/26/2024 Active ALPRAZolam 0.5 mg oral tablet (15 sources) Benzodiazepine Start: 06-15-2024 End: 11-13-2024 take 1 tablet by mouth every twelve hours as needed for anxiety and anxiety and anxiety ALPRAZolam (XANAX) 0.5 mg tablet Indications: Anxiety Take 1 tablet (0.5 mg total) by mouth every 12 (twelve) hours as needed for anxiety. 60 tablet 2 11/13/2024 Active Start: 05-15-2024 take 1 tablet by jimmy th every twelve hours as needed for anxiety and anxiety and anxiety ALPRAZolam (XANAX) 0.5 mg tablet Indications: Anxiety Take 1 tablet (0.5 mg total) by mouth every 12 (twelve) hours as needed for anxiety. 60 tablet 05/15/2024 Active Start: 12-20-2022 End: 05-14-2024 take 1 tablet by mouth every twelve hours as needed for anxiety and anxiety and anxiety ALPRAZolam (XANAX) 0.5 mg tablet Indications: Anxiety Take 1 tablet (0.5 mg total) by mouth every 12 (twelve) hours as needed for anxiety. 60 tablet 04/16/2024 05/14/2024 Discontinued (Reorder) amLODIPine 10 mg oral tablet (12 sources) Dihydropyridine Calcium Channel Efraín Start: 12-30-2024 take 1 tablet by mouth once daily in the morning amLODIPine (NORVASC) 10 mg tablet Take 1 tablet (10 mg total) by mouth every morning. 90 tablet 1 12/30/2024 Active Start: 08-01-2022 End: 12-30-2024 take 1 tablet by mouth once daily amLODIPine (NORVASC) 10 mg tablet take 1 tablet by mouth every day 90 tablet 3 01/15/2024 12/30/2024 Discontinued atorvastatin 20 mg oral tablet (12 sources) HMG-CoA Reductase Inhibitor Start: 12-30-2024 take 1 tablet by mouth once daily in the morning atorvastatin (LIPITOR) 20 mg tablet Take 1 tablet (20 mg total) by mouth every morning. 90 tablet 1 12/30/2024 Active Start: 07-20-2022 End: 12-30-2024 take 1 tablet by mouth once daily atorvastatin (LIPITOR) 20 mg tablet take 1 tablet by mouth every day 90 tablet 3 01/07/2024 12/30/2024 Discontinued benzonatate 200 mg oral capsule (2 sources) Non-narcotic Antitussive Start: 04-30-2024 End: 06-30-2024 take 1 capsule by mouth three times daily as needed for cough benzonatate (TESSALON PERLES) 200 mg capsule Indications: Bronchitis Take 1 capsule (200 mg total) by mouth 3 (three) times a day as needed for cough. 20 capsule 04/30/2024 06/30/2024 Discontinued cyclobenzaprine hydrochloride 10 mg oral tablet (12 sources) Muscle Relaxant Start: 12-30-2024 take 1 tablet by mouth once daily cyclobenzaprine (FLEXERIL) 10 mg tablet Take 1 tablet (10 mg total) by mouth nightly. 90 tablet 1 12/30/2024 Active Start: 12-20-2022 End: 12-30-2024 take 1 tablet by mouth once daily cyclobenzaprine (FLEXERIL) 10 mg tablet TAKE 1 TABLET BY MOUTH EVERY DAY AT NIGHT 90 tablet 2 04/03/2024 12/30/2024 Discontinued empagliflozin 10 mg oral tablet (8 sources) Sodium-Glucose Cotransporter 2 Inhibitor Start: 08-06-2024 End: 11-03-2024 take 1 tablet by mouth in the morning empagliflozin (JARDIANCE) 10 mg tablet tablet Indications: Type 2 diabetes mellitus without complication, without long-term current use of insulin ([facility]) Take 1 tablet (10 mg total) by mouth in the morning. 90 tablet 1 11/03/2024 Active fluconazole 150 mg oral tablet (2 sources) Azole Antifungal Start: 12-01-2024 End: 12-01-2024 take 1 tablet by mouth once fluconazole (DIFLUCAN) 150 mg tablet Take 1 tablet (150 mg total) by mouth once for 1 dose. 1 tablet 12/01/2024 12/01/2024 Active Start: 08-26-2024 End: 08-26-2024 take 1 tablet by mouth once fluconazole (DIFLUCAN) 150 mg tablet Take 1 tablet (150 mg total) by mouth once for 1 dose. 1 tablet 08/26/2024 08/26/2024 Active glimepiride 1 mg oral tablet (11 sources) Sulfonylurea Start: 08-13-2022 take 1 tablet by mouth twice daily at mealtime glimepiride (AMARYL) 1 mg tablet Indications: Type 2 diabetes mellitus without complication, without long-term current use of insulin ([facility]) take 1 tablet by mouth twice a day with food 180 tablet 3 02/03/2024 Active hydroCHLOROthiazide 25 mg / lisinopril 20 mg oral tablet (12 sources) Thiazide Diuretic, Angiotensin Converting Enzyme Inhibitor Start: 12-30-2024 take 1 tablet by mouth once in the morning lisinopril-hydroC HLOROthiazide (PRINZIDE,ZESTORE TIC) 20-25 mg per tablet Take 1 tablet by mouth in the morning. 90 tablet 1 12/30/2024 Active Start: 01-20-2024 End: 12-30-2024 take 1 tablet by mouth once daily in the morning lisinopril-hydroCHLOROthiazide (PRINZIDE,ZESTORETIC) 20-25 mg per tablet take 1 tablet by mouth every day in the morning 90 tablet 3 01/20/2024 12/30/2024 Discontinued Start: 08-01-2022 take 1 tablet by jimmy th in the morning lisinopril-hydroCHLOROthiazide 20-25 MG tablet Take 1 tablet by mouth in the morning. 08/01/2022 Active metFORMIN hydrochloride 500 mg oral tablet (12 sources) Biguanide Start: 12-30-2024 take 2 tablets by mouth in the morning, then take 2 tablets by mouth at bedtime metFORMIN (GLUCOPHAGE) 500 mg tablet Take 2 tablets (1,000 mg total) by mouth in the morning and 2 tablets (1,000 mg total) before bedtime. 360 tablet 1 12/30/2024 Active Start: 07-25-2022 End: 12-30-2024 take 2 tablets by mouth at bedtime metFORMIN (GLUCOPHAGE) 500 mg tablet TAKE 2 TABLETS (1,000 MG TOTAL) BY MOUTH IN THE MORNING AND BEFORE BEDTIME. 360 tablet 3 01/07/2024 12/30/2024 Discontinued nystatin 100 unt/mg topical powder (10 sources) Polyene Antifungal Start: 12-27-2023 nystatin (MYCOSTATIN) powder Indications: Intertriginous candidiasis Apply 1 Application topically in the morning and 1 Application before bedtime. 30 g 12/27/2023 Active pantoprazole 40 mg delayed release oral tablet (12 sources) Proton Pump Inhibitor Start: 12-30-2024 take 1 tablet by mouth at bedtime pantoprazole (PROTONIX) 40 mg EC tablet Take 1 tablet (40 mg total) by mouth in the morning and at bedtime. 180 tablet 1 12/30/2024 Active Start: 08-01-2022 End: 12-30-2024 take 1 tablet by mouth at bedtime pantoprazole (PROTONIX) 40 mg EC tablet TAKE 1 TABLET (40 MG TOTAL) BY MOUTH IN THE MORNING AND BEFORE BEDTIME 180 tablet 3 01/07/2024 12/30/2024 Discontinued Problems Active Problems Problem Classification Problem Date Documented Date Episodic/Chronic Anxiety disorders (18 sources) Anxiety; Translations: [Anxiety disorder, unspecified] Onset: 06-30-2020 05-14-2024 Chronic Diabetes mellitus without complication (15 sources) Type 2 diabetes mellitus without complication; Translations: [Type 2 diabetes mellitus without complications] Onset: 06-30-2020 06-30-2020 Chronic Disorders of lipid metabolism (10 sources) Mixed hyperlipidemia; Translations: [Mixed hyperlipidemia] Onset: 06-30-2020 06-30-2020 Chronic Esophageal disorders (1 source) Gastro-esophageal reflux disease without esophagitis; Translations: [Gastro-esophageal reflux disease without esophagitis] Onset: 01-08-2024 Chronic Essential hypertension (13 sources) Essential hypertension; Translations: [Essential (primary) hypertension] Onset: 06-30-2020 06-30-2020 Chronic Fever of unknown origin (1 source) Fever, unspecified; Translations: [FEVER UNSPECIFIED] Onset: 09-09-2020 Episodic Heart valve disorders (12 sources) Aortic valve stenosis; Translations: [Nonrheumatic aortic (valve) stenosis] Onset: 07-24-2022 07-24-2022 Chronic Unclassified (3 sources) CONTACT W/AND (SUSP) EXPOS COVID-19; Translations: [CONTACT W/AND (SUSP) EXPOS COVID-19] Onset: 09-09-2020 Unclassified (1 source) Esophagitis, unspecified without bleeding; Translations: [Esophagitis, unspecified without bleeding] Onset: 01-23-2024 Unclassified (1 source) gastroesophageal reflux, family history of colon cancer Onset: 01-23-2024 Unclassified (1 source) Colon Cancer Screening Onset: 01-08-2024 Unclassified (1 source) Annual Exam Onset: 12-27-2023 Past or Other Problems Problem Classification Problem Date Documented Da te Episodic/Chronic Chronic obstructive pulmonary disease and bronchiectasis (1 source) Bronchitis, not specified as acute or chronic; Translations: [Bronchitis, not specified as acute or chronic] Onset: 09-23-2023 Episodic Immunizations and screening for infectious disease (4 sources) Encounter for screening for other viral diseases; Translations: [ENC SCREENING FOR OTH VIRAL DZ] Onset: 01-11-2020 Episodic Mood disorders (10 sources) Mood disorders Onset: 12-27-2023 Resolved: 08-06-2024 12-27-2023 Nonmalignant breast conditions (1 source) Unspecified lump in the left breast, unspecified quadrant; Translations: [Unspecified lump in the left breast, unspecified quadrant] Onset: 10-29-2023 Episodic Other and unspecified benign neoplasm (1 source) Benign neoplasm of stomach; Translations: [Benign neoplasm of stomach] Onset: 01-23-2024 Episodic Other circulatory disease (2 sources) Other specified symptoms and signs involving the circulatory and respiratory systems; Translations: [Other specified symptoms and signs involving the circulatory and respiratory systems] Onset: 09-23-2023 Episodic Other gastrointestinal disorders (1 source) Heartburn Onset: 01-08-2024 Episodic Other lower respiratory disease (1 source) Cough Onset: 09-23-2023 Episodic Other screening for suspected conditions (not mental disorders or infectious disease) (2 sources) Encounter for screening for malignant neoplasm of colon; Translations: [Encounter for screening mammogram for malignant neoplasm of breast] Onset: 09-23-2023 Episodic Residual codes; unclassified (2 sources) Family history of malignant neoplasm of digestive organs; Translations: [Family history of malignant neoplasm of digestive organs] Onset: 01-08-2024 Episodic Unclassified (1 source) CONTACT W/AND (SUSP) EXPOS COVID-19; Translations: [CONTACT W/AND (SUSP) EXPOS COVID-19] Onset: 09-05-2020 Results Test Name Value Interpretation Reference Range Facil ity HGB A1C (GLYCO-HGB)on 2024 Glucose [Mass/Vol] 194 mg/dL Normal [facility] Comment on above: Performed By: #### C ANDRA, 42592-1, THYR #### [facility] ([id number]) [address] [place] [address], [address] [place] [address] HbA1c (Bld) [Mass fraction] 8.4 % High 4.4-5.6 [facility] Comment on above: Result Comment: NOTE ADA Guidelines Result HgbA1c Normal : less than 5.7 % Prediabetes : 5.7 % to 6.4 % Diabetes : > 6.4 % Use with caution in patients with abnormal hemoglobin variants as the half-life of red blood cells and in vivo glycation rates are affected. Performed By: #### Wiley SILVERMAN, 72798-3, THYR #### [facility] ([id number]) [address] [place] [address], [address] [place] [address] H PYLORI SCREENon 01-23-2024 H. pylori Org specific cx Ql (Radha fld) Negative Normal NEG [facility] Comment on above: Performed By: #### 4 4015-6 #### [facility] ([id number]) [address] [place] [address], [address] [place] [address] Surgical Pathologyon 024 Surgical Pathology Normal [facility] Comment on above: Result Comment: [facility] [address] [place] [address] Surgical Pathology Consultation Patient Name:CHERIE CELIS:1965 (Age: 58)Gender:FTaken:4Reported:4Physician(s):Gage Shannon D.O. ([phone])Copy To: Rec. #:[id number]: #[id number] Final Pathologic Diagnosis 1. Gastric fundic polypectomy: Fundic gland polyp. No dysplasia or intestinal metaplasia identified. 2. Gastric antrum biopsy: Gastric mucosa without significant pathologic change. Negative for intestinal metaplasia; no significant inflammatory activity identified. No Helicobacter pylori organisms identified on H&E-stain. 3. Distal esophagus biopsy: Squamous esophageal mucosa, with scant detached fragments of columnar epithelium, showing no significant pathologic change. No eosinophilic infiltrate or significant inflammatory activity identified. Negative for goblet cell metaplasia negative for dysplasia. Report Electronically Signed Out ao/4Amarielle Moreno MD Interpretation performed at [facility], [address] [place] [address], License number: [id number]. Clinical History Gastroesophageal reflux, family history of colon cancer. Gross Description 1. Received in formalin labeled [facility], fundic gland polyp is a pink-ling soft tissue bit, 0.2 cm in greatest dimension. The specimen is filtered and submitted entirely in a single cassette. (1, ns, [id number], m8) YESI 2. Received in formalin labeled [facility], antrum are two pink-ling soft tissue bits, 0.4 and 0.5 cm in greatest dimension. The specimens are filtered and submitted entirely in a single cassette. (1, ns, [id number], m8) YESI 3. Received in formalin labeled [facility], distal esophagus are two pale-ling, feathery-soft tissue bits, each 0.3 cm in greatest dimension. The specimens are filtered and submitted entirely in a single cassette. (1, ns, [id number], m8) YESI jkh/01/24/2024NXK Specimen(s) Received 1: Fundic gland polyp 2: Antrum biopsy 3: Esophageal distal biopsy Fee Codes(s): 1; 27613 2; 02805 3; 89833 COMPREHENSIVE METABOLIC PANE [facility] 01-09-2024 Albumin [Mass/Vol] 4.6 g/dL Normal 3.2-5.3 [facility] Comment on above: Performed By: #### Wiley SILVERMAN, 78951-2, HA1C #### [facility] ([id number]) [address], [address] [place] [address] ALP [Catalytic activity/Vol] 106 U/L Normal 39-130 [facility] Comment on above: Performed By: #### Wiley SILVERMAN 04778-9, HA1C #### [facility] ([id number]) [address], [address] [place] [address] ALT [Catalytic activity/Vol] 18 U/L Normal 0-31 [facility] Comment on above: Performed By: #### Wiley SILVERMAN, 24752-6, HA1C #### [facility] ([id number]) [address], [address] [place] [address] Anion gap [Moles/Vol] 14 mmol/L Normal 5-15 [facility] Comment on above: Performed By: #### Wiley SILVERMAN, 20943-9, HA1C #### [facility] ([id number]) [address], [facility] [address] [place] [address] AST [Catalytic activity/Vol] 17 U/L Normal 0-41 [facility] Comment on above: Performed By: #### Wiley SILVERMAN, 72454-1, HA1C #### [facility] ([id number]) [address], [address] [place] [address] Bilirubin [Mass/Vol] 0.6 mg/dL Normal 0.3-1.2 [facility] Comment on above: Performed By: #### Wiley SILVERMAN, 51153-7, HA1C #### [facility] ([id number]) [address], [address] [place] [address] Calcium [Mass/Vol] 10.1 mg/dL Normal 8.5-10.5 [facility] Comment on above: Performed By: #### Wiley SILVERMAN, 94095-1, HA1C #### [facility] ([id number]) [address], [address] [place] [address] Chloride [Moles/Vol] 102 mmol/L Normal 98-109 [facility] Comment on above: Performed By: #### Wiley SILVERMAN 11234-9, HA1C #### [facility] ([id number]) [address], [address] [place] [address] CO2 [Moles/Vol] 23 mmol/L Normal 22-32 [facility] Comment on above: Performed By: #### Wiley SILVERMAN, 69775-1, HA1C #### [facility] ([id number]) [address], [address] [place] [address] Creatinine [Mass/Vol] 1.18 mg/dL High 0.40-1.00 [facility] Comment on above: Result Comment: METH OD TRACEABLE TO IDMS STANDARD Performed By: #### Wiley SILVERMAN, 91217-0, HA1C #### [facility] ([id number]) [address], [address] [place] [address] GFR/1.73 sq M.predicted among non-blacks MDRD (S/P/Bld) [Vol rate/Area] 53 mL/min/{1.73_m2} Low >59 [facility] Comment on above: Result Comment: Reported eGFR is based on the CKD-EPI 2020 equation that does not use a race coefficient. Performed By: #### Wiley SILVERMAN, 21169-7, HA1C #### [facility] ([id number]) [address], [address] [place] [address] Glucose [Mass/Vol] 151 mg/dL High 65-99 [facility] Comment on above: Performed By: #### Wiley SILVERMAN, 20096-6, HA1C #### [facility] ([id number]) [address], [address] [place] [address] Potassium [Moles/Vol] 4.5 mmol/L Normal 3.5-5.0 [facility] Comment on above: Performed By: #### Wiley SILVERMAN, 26610-6, HA1C #### [facility] ([id number]) [address], [address] [place] [address] Protein [Mass/Vol] 7.5 g/dL Normal 6.0-8.0 [facility] Comment on above: Performed By: #### Wiley SILVERMAN, 08525-9, HA1C #### [facility] ([id number]) [address], [address] [place] [address] Sodium [Moles/Vol] 139 mmol/L Normal 134-146 [facility] Comment on above: Performed By: #### Wiley SILVERMAN, 05607-2, HA1C #### [facility] ([id number]) [address], [address] [place] [address] Urea nitrogen [Mass/Vol] 25 mg/dL High 5-23 [facility] Comment on above: Performed By: #### Wiley SILVERMAN, 35226-6, HA1C #### [facility] ([id number]) [address], [address] [place] [address] HGB A1C (GLYCO-HGB)on 2023 Glucose [Mass/Vol] 180 mg/dL Normal [facility] Comment on above: Performed By: #### Wiley SILVERMAN, 07977-6, HA1C #### [facility] ([id number]) [address], [address] [place] [address] HbA1c (Bld) [Mass fraction] 7.9 % High 4.4-5.6 [facility] Comment on above: Result Comment: NOTE ADA Guidelines Result HgbA1c Normal : less than 5.7 % Prediabetes : 5.7 % to 6.4 % Diabetes : > 6.4 % Use with caution in patients with abnormal hemoglobin variants as the half-life of red blood cells and in vivo glycation rates are affected. Performed By: #### Wiley SILVERMAN, 36699-9, RANDA #### [facility] ([id number]) [address], [address] [place] [address] Lipid 1996 panelon 4 Cholesterol [Mass/Vol] 180 mg/dL Normal 150-200 [facility] Comment on above: Performed By: #### Wiley SILVERMAN, 68193-3, RANDA #### [facility] ([id number]) [address], [address] [place] [address] Cholesterol in HDL [Mass/Vol] 48 mg/dL Normal >39 [facility] Comment on above: Result Comment: HDL <40 mg/dL - High Risk HDL > or = 40mg/dL- Desirable HDL >60 mg/dL - Negative Risk Performed By: #### Wiley SILVERMAN, 11006-9, HA1C #### [facility] ([id number]) [address], [address] [place] [address] Cholesterol in LDL [Mass/Vol] 105 mg/dL Normal <130 [facility] Comment on above: Result Comment: LDL <100 mg/dL - Desirable LDL >160 mg/dL - High Risk Performed By: #### C ANDRA, 40519-7, HA1C #### [facility] ([id number]) [address], [address] [place] [address] Cholesterol in VLDL [Mass/Vol] 27 mg/dL Normal 0-30 [facility] Comment on above: Performed By: #### C ANDRA, 40912-2, HA1C #### [facility] ([id number]) [address], [address] [place] [address] CHOLESTEROL:HDL 3.8 Normal 1.0-5.0 [facility] Comment on above: Performed By: #### C ANDRA, 03950-4, HA1C #### [facility] ([id number]) [address], [address] [place] [address] Triglyceride [Mass/Vol] 135 mg/dL Normal 27-150 [facility] Comment on above: Performed By: #### Wiley SILVERMAN, 96904-6, HA1C #### [facility] ([id number]) [address], [address] [place] [address] MAMM DIAGNOSTIC BILATERAL W CADon 10-29-2023 MAMM DIAGNOSTIC BILATERAL W CAD MAMM DIAGNOSTIC BILATERAL W CAD EXAM: MAMM DIAGNOSTIC BILATERAL W CAD, US [...] 9:38 AM 1 b MAMM 1 YR Normal [facility] US BREAST LT LIMITEDon 10-28 US BREAST LT LIMITED US BREAST LT LIMITED EXAM: MAMM DIAGNOSTIC BILATERAL W CAD, US [...] 9:38 AM 1 b MAMM 1 YR Normal [facility] COMPREHENSIVE METABOLIC PANE Alfonso 08-16-2023 Albumin [Mass/Vol] 4.4 g/dL Normal 3.2-5.3 [facility] Comment on above: Performed By: #### C ANDRA, 43554-5, THYR #### [facility] ([id number]) [address], [address] [place] [address] ALP [Catalytic activity/Vol] 126 U/L Normal 39-130 [facility] [facility] Comment on above: Performed By: #### C ANDRA, 83831-3, THYR #### [facility] ([id number]) [address] [place] [address] ALT [Catalytic activity/Vol] 21 U/L Normal 0-31 [facility] Comment on above: Performed By: #### Ning Jama MP31-1, THYR #### [facility] ([id number]) [address], [address] [place], [place] [address] Anion gap [Moles/Vol] 14 mmol/L Normal 5-15 [facility] Comment on above: Performed By: #### Melisa Jama MP-1, THYR #### [facility] ([id number]) [address], [address] [place], [place] [address] AST [Catalytic activity/Vol] 21 U/L Normal 0-41 [facility] Comment on above: Performed By: #### Melisa Jama MP-1, THYR #### [facility] ([id number]) [address] [place], [place] [address] Bilirubin [Mass/Vol] 0.5 mg/dL Normal 0.3-1.2 [facility] Comment on above: Performed By: #### Ning Jama MP31-1, THYR #### [facility] ([id number]) [address] [place], [place] [address] Calcium [Mass/Vol] 9.9 mg/dL Normal 8.5-10.5 [facility] Comment on above: Performed By: #### Ning Jama MP31-1, THYR #### [facility] ([id number]) [address] [place], [place] [address] Chloride [Moles/Vol] 102 mmol/L Normal 98-109 [facility] Comment on above: Performed By: #### Melisa Jama MP-1, THYR #### [facility] ([id number]) [address] [place] [address] CO2 [Moles/Vol] 24 mmol/L Normal 22-32 [facility] Comment on above: Performed By: #### Melisa Jama MP-1, THYR #### [facility] ([id number]) [address] [facility] [place] [address] Creatinine [Mass/Vol] 1.24 mg/dL High 0.40-1.00 [facility] Comment on above: Result Comment: METH OD TRACEABLE TO IDMS STANDARD Performed By: #### C ANDRA, 60703-4, THYR #### [facility] ([id number]) [address] [place] [address] GFR/1.73 sq M.predicted among non-blacks MDRD (S/P/Bld) [Vol rate/Area] 50 mL/min/{1.73_m2} Low >59 [facility] Comment on above: Result Comment: Reported eGFR is based on the CKD-EPI 2020 equation that does not use a race coefficient. Performed By: #### C ANDRA 01618-3, THYR #### [facility] ([id number]) [address], [address] [place] [address] Glucose [Mass/Vol] 130 mg/dL High 65-99 [facility] Comment on above: Performed By: #### C ANDRA 99374-6, THYR #### [facility] ([id number]) [address] [facility] [place] [address] Potassium [Moles/Vol] 4.3 mmol/L Normal 3.5-5.0 [facility] Comment on above: Performed By: #### C ANDRA 55428-5, THYR #### [facility] ([id number]) [address] [facility] [address] [place] [address] Protein [Mass/Vol] 7.5 g/dL Normal 6.0-8.0 [facility] Comment on above: Performed By: #### C ANDRA, 06184-7, THYR #### [facility] ([id number]) [address] [facility] [address] [place] [address] Sodium [Moles/Vol] 140 mmol/L Normal 134-146 [facility] Comment on above: Performed By: #### Wiley SILVERMAN, 62038-3, THYR #### [facility] ([id number]) [address] [place] [address] Urea nitrogen [Mass/Vol] 24 mg/dL High 5-23 [facility] Comment on above: Performed By: #### Wiley SILVERMAN, 77750-6, THYR #### [facility] ([id number]) [address], [facility] [address] [place] [address] HGB A1C (GLYCO-HGB)on 2023 Glucose [Mass/Vol] 183 mg/dL Normal [facility] Comment on above: Performed By: #### Wiley SILVERMAN, 95267-8, THYR #### [facility] ([id number]) [address], [facility] [address] [place] [address] HbA1c (Bld) [Mass fraction] 8.0 % High 4.4-5.6 [facility] Comment on above: Result Comment: NOTE ADA Guidelines Result HgbA1c Normal : less than 5.7 % Prediabetes : 5.7 % to 6.4 % Diabetes : > 6.4 % Use with caution in patients with abnormal hemoglobin variants as the half-life of red blood cells and in vivo glycation rates are affected. Performed By: #### Wiley SILVERMAN, 52182-5, THYR #### [facility] ([id number]) [address] [place] [address] Lipid 1996 panelon Cholesterol [Mass/Vol] 187 mg/dL Normal 150-200 [facility] Comment on above: Performed By: #### Wiley SILVERMAN, 21752-3, THYR #### [facility] ([id number]) [address] [place] [address] Cholesterol in HDL [Mass/Vol] 45 mg/dL Normal >39 [facility] Comment on above: Result Comment: HDL <40 mg/dL - High Risk HDL > or = 40mg/dL- Desirable HDL >60 mg/dL - Negative Risk Performed By: #### Wiley SILVERMAN, 61865-1, THYR #### [facility] ([id number]) [address], [facility] [address] [place] [address] Cholesterol in LDL [Mass/Vol] 113 mg/dL Normal <130 [facility] Comment on above: Result Comment: LDL <100 mg/dL - Desirable LDL >160 mg/dL - High Risk Performed By: #### Wiley SILVERMAN, 15668-3, THYR #### [facility] ([id number]) [address], [facility] [address] [place] [address] Cholesterol in VLDL [Mass/Vol] 29 mg/dL Normal 0-30 [facility] Comment on above: Performed By: #### Wiley SILVERMAN, 01984-4, THYR #### [facility] ([id number]) [address] [place] [address] CHOLESTEROL:HDL 4.2 Normal 1.0-5.0 [facility] Comment on above: Performed By: #### Wiley SILVERMAN, 71362-6, THYR #### [facility] ([id number]) [address], [facility] [address] [place] [address] Triglyceride [Mass/Vol] 143 mg/dL Normal 27-150 [facility] Comment on above: Performed By: #### Wiley SILVERMAN, 10243-0, THYR #### [facility] ([id number]) [address], [address] [place] [address] THYROID PROFILEon 08-16-2023 Free T4 [Mass/Vol] 1.78 ng/dL High 0.61-1.60 [facility] Comment on above: Performed By: #### C MP, 87985-7, THYR #### [facility] ([id number]) [address], [address] [place] [address] TSH 1.38 uIU/mL Normal 0.49-4.67 [facility] Comment on above: Performed By: #### C ADNRA, 10618-8, THYR #### [facility] ([id number]) [address] [place] [address] [facility] SARS-CoV-2 (COVID-19) RNA MERA+probe Ql (Unsp spec) Not detected Normal NOT DETECTED [facility] Comment on above: Result Comment: This test is not yet approved or cleared by the [place] FDA. When there are no FDA-approved or cleared tests available, and other criteria are met, FDA can make tests available under an emergency access mechanism called an Emergency Use Authorization (EUA). The EUA for this test is supported by the [place] of Health and Human Service's (HHS's) declaration that circumstances exist to justify the emergency use of in vitro diagnostics for the detection and/or diagnosis of the virus that causes COVID-19. This EUA will remain in effect (meaning this test can be used) for the duration of the COVID-19 declaration justifying emergency of IVDs, unless it is terminated or revoked by FDA (after which the test may no longer be used). When diagnostic testing is negative, the possibility of a false negative should be considered in the context of a patient's recent exposures and the presence of clinical signs and symptoms consistent with SARS-CoV-2. Performed By: #### C VDTBH #### [facility] [address] [address] Clarence Galan COVID-19 PCRon 01-12-2020 SARS-CoV-2 (COVID-19) RNA MERA+probe Ql (Unsp spec) Not detected Normal Not Detected [facility] Comment on above: Result Comment: This test was developed and its performance characteristics determined by [employer]. This test has not been FDA cleared or approved. This test has been authorized by FDA under an Emergency Use Authorization (EUA). This test is only authorized for the duration of time the declaration that circumstances exist justifying the authorization of the emergency use of in vitro diagnostic tests for detection of SARS-CoV-2 virus and/or diagnosis of COVID-19 infection under section 564(b)(1) of the Act, 21 U.S.C. 360bbb-3(b)(1), unless the authorization is terminated or revoked sooner. When diagnostic testing is negative, the possibility of a false negative result should be considered in the context of a patient's recent exposures and the presence of clinical signs and symptoms consistent with COVID-19. An individual without symptoms of COVID-19 and who is not shedding SARS-CoV-2 virus would expect to have a negative (not detected) result in this assay. Performed By: #### C VDPCR #### [facility] [address] [place] [address] Clarenceamada Galan Vital Signs Date Time Vital Sign Value Performing Clinician Facility 08-06-2024 14:37-0400 Body height 152.4 cm Moon Maldonado MD Work Phone: [facility] [employer] [facility] 08-06-2024 14:37-0400 Body mass index (BMI) [Ratio] 36.95 kg/m2 Moon Maldonado MD Work Phone: [facility] [employer] [facility] 08-06-2024 14:37-0400 Body temperature 98.71 [degF] [facility] 08-06-2024 14:37-0400 Body weight 85.82 kg Moon Maldonado MD Work Phone: [facility] [employer] [facility] 08-06-2024 14:37-0400 Diastolic blood pressure 78 mm[Hg] Moon Maldonado MD Work Phone: [employer] [facility] 08-06-2024 14:37-0400 Heart rate 117 /min Moon Maldonado MD Work Phone: [facility] [employer] 08-06-2024 14:37-0400 Respiratory rate 18 /min Moon Maldonado MD Work Phone: [facility] [employer] [facility] 08-06-2024 14:37-0400 SaO2% (BldA) [Mass fraction] 97 % Moon Maldonado MD Work Phone: [facility] [employer] [facility] 08-06-2024 14:37-0400 Systolic blood pressure 138 mm[Hg] Moon Maldonado MD Work Phone: [facility] [employer] 06-30-2024 13:24-0500 Body mass index (BMI) [Ratio] 36.07 kg/m2 Moon Mal[facility]ado [facility] 06-30-2024 13:24-0500 Body weight 85.55 kg Moon Maldonado MD Work Phone: [facility] [employer] [facility] 06-30-2024 13:24-0500 Diastolic blood pressure 95 mm[Hg] Moon Maldonado MD Work Phone: [facility] [employer] [facility] 06-30-2024 13:24-0500 Heart rate 116 /min Moon Maldonado MD Work Phone: [facility] [employer] [facility] 06-30-2024 13:24-0500 Systolic blood pressure 160 mm[Hg] Moon Maldonado MD Work Phone: [facility] [employer] [facility] Encounters Encounter Date Encounter Type Care Provider Facility Start: 01-05-2025 End: 01-05-2025 Bamboo flowsheet Anna Cristina DO Work Phone: [facility] Start: 01-05-2025 End: 01-05-2025 Bamboo flowsheet Anna Cristina DO Work Phone: [facility] Start: 12-30-2024 End: 12-30-2024 Refill Moon Maldonado MD Work Phone: [facility] Start: 12-01-2024 End: 12-01-2024 Telephone encounter Mary MCPHERSON [facility] Start: 11-13-2024 End: 11-13-2024 Refill Mary Ajith MCPHERSON [facility] Comment on above: Anxiety Start: 10-31-2024 End: 11-03-2024 Refill Moon Maldonado MD Work Phone: [facility] Comment on above: Type 2 diabetes kenney itus without complication, without long- term current use of insulin ([facility]) Start: 08-26-2024 End: 08-26-2024 Telephone encounter Moon Maldonado MD Work Phone: [facility] Start: 08-11-2024 End: 08-11-2024 Refill Maryeris MCPHERSON [facility] Comment on above: Anxiety Start: 08-06-2024 End: 08-06-2024 Office outpatient visit 15 minutes Moon Maldonado MD Work Phone: [facility] Comment on above: Type 2 diabetes kenney itus without complication, without long- term current use of insulin ([facility]) (Primary Dx) Start: 08-06-2024 End: 08-06-2024 ambulatory [facility] Start: 07-30-2024 End: 07-30-2024 ambulatory [facility] Start: 07-15-2024 End: 07-15-2024 Refill Adysan Sleek [employer] [facility] Comment on above: Anxiety Start: 06-30-2024 End: 06-30-2024 Office outpatient visit 15 minutes Moon Maldonado MD Work Phone: [facility] Comment on above: Anxiety (Primary Dx) ; Type 2 diabetes mellitus without complication, without long-term current use of insulin ([facility]); Essential hypertension Start: 06-30-2024 End: 06-30-2024 ambulatory [facility] Start: 05-14-2024 End: 05-15-2024 Юлия Canseco Eris [facility] Comment on above: Anxiety Start: 04-30-2024 End: 04-30-2024 ambulatory [facility] Start: 01-24-2024 End: 01-24-2024 Evaluation and management of inpatient CINDY ARENAS [facility] Start: 01-23-2024 End: 01-24-2024 Evaluation and management of inpatient GAGE SHANNON [facility] Start: 01-16-2024 End: 01-16-2024 ambulatory [facility] Start: 01-09-2024 End: 01-09-2024 ambulatory [facility] Start: 01-09-2024 Encounter for genera l adult medical examination without abnormal findings [facility] Start: 01-08-2024 End: 01-08-2024 ambulatory SUKHI CARSON [facility] Start: 12-30-2023 End: 12-30-2023 ambulatory ANNA DECKER Not Available Start: 12-27-2023 End: 12-27-2023 ambulatory [facility] Start: 11-07-2023 End: 11-07-2023 ambulatory [facility] Start: 10-29-2023 End: 10-29-2023 ambulatory [facility] Start: 10-29-2023 End: 10-29-2023 ambulatory [facility] Start: 09-23-2023 End: 09-23-2023 ambulatory [facility] Start: 08-16-2023 End: 08-16-2023 ambulatory [facility] Start: 09-05-2020 End: 09-05-[address] MOON MALDONADO Facility:[facility] Start: 01-11-2020 End: 01-12-[address] MOON MALDONADO Facility:[facility] Procedures Date Procedure Procedure Detail Performing Clinician Start: 08-06-2024 Adult depression scr eening assessment Moon Maldonado MD Work Phone: Start: 05-29-2024 Diabetic retinal eye exam Moon Maldonado MD Work Phone: Start: 01-23-2024 Colonoscopy Mary meade [facility] Start: 12-30-2023 Microscopic observat ion [Identifier] in Cervix by Cyto stain Mary Canseco [facility] Start: 12-27-2023 Adult depression scr eening assessment Mary Canseco [facility] Start: 10-29-2023 Mammography Mary meade [facility] Start: 04-26-2023 Diabetic retinal eye exam Mary Canseco [facility] Start: 08-28-2022 Microalbumin [Mass/v olume] in Urine by Test strip Mary Canseco [facility] Plan of Treatment Date Care Activity Detail Author Start: 01-22-2034 Screening for malign ant neoplasm of colon [facility] Start: 01-22-2029 Screening for malign ant neoplasm of colon Colonoscopy [facility] Start: 01-10-2028 Screening for malign ant neoplasm of cervix [facility] Start: 12-29-2026 Screening for malign ant neoplasm of cervix Pap Smear [facility] Start: 08-06-2025 Adult BMI Screening Adult BMI Screen ing [facility] Start: 08-06-2025 Depression Screening Depression Scre ening [facility] Start: 08-06-2025 Tobacco Screening Tobacco Screening [facility] Start: 06-30-2025 Adult BMI Screening Adult BMI Screen ing [facility] Start: 06-30-2025 Tobacco Screening Tobacco Screening [facility] Start: 05-29-2025 Glaucoma screening Diabetic Op hthalmology Exam [facility] Start: 04-30-2025 Adult BMI Screening Adult BMI Screen ing [facility] Start: 04-30-2025 Tobacco Screening Tobacco Screening [facility] Start: 01-25-2025 Influenza vaccination [facility] Start: 01-07-2025 End: 01-07-2025 Patient encounter procedure 01/07/2025 2:30 PM EDT [facility] MIGUEL CASTRO [address] [phone] Moon Maldonado MD [address] [place] [address], [address] [place], [place] [id number] [facility] Start: 12-31-2024 End: 12-31-2024 Patient encounter procedure 12/31/2024 1:30 PM EDT Office Visit [facility] [address] [place] [phone] Moon Maldonado MD [address] [place] [address], [address] [place] [address] [facility] Start: 12-29-2024 Screening for malign ant neoplasm of cervix Pap Smear [facility] Start: 12-26-2024 Depression Screening Depression Scre ening [facility] Start: 10-28-2024 Screening for malign ant neoplasm of breast Mammogram [facility] Start: 06-30-2024 End: 06-30-2024 Patient encounter procedure 06/30/2024 1:30 PM EST [facility] [address] [address] [place] [phone] Moon Maldonado MD [address] [place] [address], [address] [place] [id number] [facility] Start: 04-26-2024 Glaucoma screening Diabetic Op hthalmology Exam [facility] Start: 01-26-2024 COVID-19 Vaccine ( season) COVID-19 Vaccine ( season) [facility] Start: 01-26-2024 Influenza vaccination Influenza Vacc ine [facility] Start: 08-29-2023 Urine screening for protein Urine Microalbumin [facility] Start: 02-06-2014 Administration of varicella zoster vaccine Zoster (Shingles) Vaccine (1 of 2) [facility] Start: 02-06-1983 DTaP,Tdap and Td Vaccines (1 - Tdap) DTaP,Tdap and Td Vaccines (1 - Tdap) [facility] Start: 02-06-1982 Adult BMI Follow Up Plan Adult BMI Follow Up Plan [facility] Start: 02-06-1982 Diabetic foot examination Diabetic Foot Exam [facility] Start: 1964 Screening for malign ant neoplasm of colon [facility] End: 06-30-2025 Hemoglobin A1c/Hemoglobin.total in Blood Hemoglobin A1c Lab Routine Type 2 diabetes mellitus without complication, without long-term current use of insulin ([facility]) 1 Occurrences starting 06/30/2024 until 06/30/2025 [employer] Work Phone: Comment on above: 1 Occurrences starti ng 06/30/2024 until 06/30/2025 End: 11-03-2025 Hemoglobin A1c/Hemoglobin.total in Blood Hemoglobin A1c Lab Routine Type 2 diabetes mellitus without complication, without long-term current use of insulin ([facility]) 1 Occurrences starting 11/03/2024 until 11/03/2025 [employer] Work Phone: Comment on above: 1 Occurrences starti ng 11/03/2024 until 11/03/2025 Immunizations Immunization Date Immunization Notes Care Provider Fa cility 02-18-2023 COVID-19, mRNA, LNP- S, PF, 30mcg/0.3mL Dose [facility] 02-18-2023 Influenza, injectabl e, Madin [place] Canine Kidney, preservative free, quadrivalent [facility] 02-18-2023 influenza virus vacc ine, unspecified formulation [facility] 04-16-2022 influenza, injectabl e, quadrivalent, preservative free [facility] 03-23-2021 COVID-19, mRNA, LNP- S, PF, 100mcg/0.5mL Dose [facility] 03-23-2021 influenza, seasonal, injectable [facility] 09-14-2020 COVID-19, mRNA, LNP- S, PF, 100mcg/0.5mL Dose [facility] 08-17-2020 COVID-19, mRNA, LNP- S, PF, 100mcg/0.5mL Dose Mary Canseco [facility] 05-03-2020 influenza, injectabl e, quadrivalent, contains preservative Mary Canseco [facility] 03-12-2017 influenza, injectabl e, quadrivalent, preservative free Mary Canseco [facility] 05-12-2015 influenza, seasonal, injectable, preservative free Mary Canseco [facility] Payers Date Payer Category Payer Unknown [id number] 2016 [facility] [id number] 2016 [facility] Managed Care - Other [id number]. 2.7.9.577527.505.315 1964 Unknown [id number] 2.16840.1.763562.3.579. 2.593 1964 Unknown [id number] 2.16840.1.636004.3.579. 2.593 1964 Unknown [id number] 2.16.840.1.272718.3.579. 2.1259 1964 Unknown [id number] 2.16.840.1.494099.3.579. 2.1286 1964 Unknown [id number] 2.16.840.1.713342.3.579. 2.1285 1964 Unknown [id number] 2.16.840.1.674904.3.579. 2.1285 1964 Unknown [id number] 2.16.840.1.750791.3.579. 2.1285 1964 Unknown [id number] 2.16.840.1.656983.3.579. 2.1285 1964 Unknown [id number] 2.16.840.1.296422.3.579. 2.1285 1964 Unknown [id number] 2.16.840.1.151299.3.579. 2.1285 1964 Unknown [id number] 2.16.840.1.152096.3.579. 2.1285 1964 Unknown [id number] 2.16.840.1.003438.3.579. 2.1285 1964 Unknown [id number] 2.16.840.1.253079.3.579. 2.1285 1964 Unknown [id number] 2.16.840.1.097789.3.579. 2.1285 1964 Unknown [id number] 2.16.840.1.979085.3.579. 2.1285 1964 Unknown [id number] 2.16.840.1.299452.3.579. 2.1285 1964 Unknown [id number] 2.16.840.1.890984.3.579. 2.1285 1964 Unknown [id number] 2.16.840.1.646745.3.579. 2.1285 1964 Unknown [id number] 2.16.840.1.891264.3.579. 2.1285 1964 Unknown [id number] 2.16.840.1.083594.3.579. 2.1285 1964 Unknown [id number] 2.16.840.1.837398.3.579. 2.1286 1964 Unknown [id number] 2.16.840.1.523632.3.579. 2.1286 1959 Unknown [id number] Social History Date Type Detail Facility Start: 07-24-2022 End: 12-11-2022 Tobacco smoking status NHIS Ex-smoker [facility] History of tobacco use Current smoker [facility] History of tobacco use Cigarette Smoker P [facility] Start: 07-24-2022 Tobacco use and exposure Smokeless tobacco non-user [facility] Start: 04-30-2024 End: 08-06-2024 Alcoholic beverage intake Ex-drinker (finding) [facility] Start: 12-30-2023 End: 04-30-2024 History of Social function [facility] Start: 12-30-2023 End: 04-30-2024 Tobacco use panel [facility] Adolescent depressio n screening assessment 0 [facility] Start: 07-24-2022 Tobacco Comment QUIT [address] [facility] Start: 1965 Sex assigned at Not on file P [facility] Start: 12-30-2014 Sex Female (finding) [facility] Start: 12-30-2023 Alcoholic beverage intake Lifetime non-drinker (finding) [facility] Clinical Notes 05-14-2024 to 12-30-2024 Telephone Encounter - VIDA Booker - 12/30/2024 12:27 AM EDTTelephone Encounter - VIDA Booker - 12/30/2024 12:27 AM EDTTelephone Encounter - VIDA Booker - 12/01/2024 10:07 AM EDT Note Date & Type Note Facility 12-30-2024 Miscellaneous Notes Formattin g of this note might be different from the original. Refill request. documented in this encounter [facility] 12-30-2024 Telephone encount er Note Refill request. [facility] 12-01-2024 Miscellaneous Notes Formattin g of this note might be different from the original. Patient called stating she has another yeast infection and is wanting to know if diflucan can be sent into the pharmacy. She has tried the OTC cream with no relief. Please advise. Script sent to pharmacy documented in this encounter [facility] 12-01-2024 Telephone encount er Note Patient called stating she has another yeast infection and is wanting to know if diflucan can be sent into the pharmacy. She has tried the OTC cream with no relief. Please advise. [facility] 12-01-2024 Telephone encount er Note Script sent to pharmacy [facility] 11-13-2024 Miscellaneous Notes Formattin g of this note might be different from the original. Refill request, contract signed and appointments up to date. documented in this encounter [facility] 11-13-2024 Telephone encount er Note Refill request, contract signed and appointments up to date. [facility] 10-31-2024 Miscellaneous Notes Formattin g of this note might be different from the original. Lmom for patient to call the office. Patient states fasting blood sugars have been really good. She has had some dizziness but not too bad. Should she get her HbA1c rechecked? documented in this encounter [facility] 10-31-2024 Telephone encount er Note Lmom for patient to call the office. [facility] 10-31-2024 Telephone encount er Note Patient states fasting blood sugars have been really good. She has had some dizziness but not too bad. Should she get her HbA1c rechecked? [facility] 08-26-2024 Miscellaneous Notes Formattin g of this note might be different from the original. Cherie called, her jardiance is giving her a yeast infection, she is wondering if you could call that pill in, and also refill her albuterol inhaler documented in this encounter [facility] 08-26-2024 Telephone encount er Note Cherie called, her jardiance is giving her a yeast infection, she is wondering if you could call that pill in, and also refill her albuterol inhaler [facility] 08-11-2024 Miscellaneous Notes Formattin g of this note might be different from the original. Refill request, contract signed and appointments up to date. documented in this encounter [facility] 08-11-2024 Telephone encount er Note Refill request, contract signed and appointments up to date. [facility] 08-06-2024 History of Presen t illness Narrative Subjective Patient ID: Cherie Celis is a 59 y.o. female. Comes in for discussion of her blood sugar. She has been trying to watch her diet, within reason, especially since she saw that her hemoglobin A1c was over 8%. She is on metformin and glimepiride both of which she tolerates. No hypoglycemia. She was on Trulicity at 1 time but had to discontinue it due to nausea. She saw the eye doctor recently and had no evidence of diabetic retinopathy. The following portions of the patient's history were reviewed and updated as appropriate: allergies, current medications, past family history, past medical history, past social history, and problem list. Review of Systems Objective Physical Exam Constitutional: Comments: She appears well. Blood pressure acceptable. Weight is well above ideal target. No other physical exam done today. Assessment/Plan Lifestyle is cornerstone of management of this chronic and progressive disease. Will add Jardiance to her regimen and she will monitor her sugar. Further pending her response. Diagnoses and all orders for this visit: Type 2 diabetes mellitus without complication, without long-term current use of insulin ([facility]) - empagliflozin (JARDIANCE) 10 mg tablet tablet; Take 1 tablet (10 mg total) by mouth in the morning. documented in this encounter [facility] 06-30-2024 History of Presen t illness Narrative Subjective Patient ID: Cherie Celis is a 59 y.o. female. Comes in for medication check. She remains on Xanax with good benefit and controlling her anxiety symptoms. History of diabetes on oral medication. She is due for hemoglobin A1c monitoring. She has no major concerns today. The following portions of the patient's history were reviewed and updated as appropriate: allergies, current medications, past medical history, past social history, and problem list. Review of Systems Objective Physical Exam Constitutional: Comments: Weight is above ideal target. Blood pressure measured above target. Neck: Vascular: No carotid bruit. Comments: No thyroid enlargement or neck mass Cardiovascular: Rate and Rhythm: Normal rate and regular rhythm. Heart sounds: Murmur heard. Pulmonary: Effort: Pulmonary effort is normal. Breath sounds: Normal breath sounds. Musculoskeletal: Right lower leg: No edema. Left lower leg: No edema. Neurological: Mental Status: She is alert. Comments: No neuropathy in the feet Assessment/Plan Medication reviewed. She should monitor her blood pressure serially while resting. Routine follow-up in 6 months for her wellness. Diagnoses and all orders for this visit: Anxiety Type 2 diabetes mellitus without complication, without long-term current use of insulin ([facility]) - Hemoglobin A1c; Future Essential hypertension documented in this encounter [facility] 05-14-2024 Miscellaneous Notes Formattin g of this note might be different from the original. Refill request, contract signed and appointments up to date. documented in this encounter [facility] 05-14-2024 Telephone encount er Note Refill request, contract signed and appointments up to date. [facility] Evaluation note Diagnosis Anxiety Anxiety state, unspecified documented in this encounter [facility] SystemEvaluation note* Diagnosis Anxiety- Primary Anxiety state, unspecified Type 2 diabetes mellitus without complication, without long-term current use of insulin ([facility]) Essential hypertension Unspecified essential hypertension documented in this encounter [facility] note* Diagnosis Anxiety Anxiety state, unspecified documented in this encounter [facility] note* Diagnosis Type 2 diabetes mellitus without complication, without long-term current use of insulin ([facility] Primary documented in this encounter [facility] note* Diagnosis Anxiety Anxiety state, unspecified documented in this encounter [facility] note* Diagnosis Type 2 diabetes mellitus without complication, without long-term current use of insulin ([facility]) documented in this encounter [facility] SystemInstructionsNot on filedocumented in this encounter [facility] SystemInstructionsNot on filedocumented [facility] filedocument[facility] in [facility] filedocumented in [facility] in [facility] filedocumented in this [facility] in [facility] Summary Purpose Family History No Family History Records FoundNo Family History Records FoundNo Family History Records FoundNo Family History Records Found Advance Directives No Advanced Directives Records FoundNo Advanced Directives Records FoundNo Advanced Directives Records FoundNo Advanced Directives Records Found Additional Source Comments INFORMATION SOURCE (unrecogn ized section and content) DATE CREATED AUTHOR 09/13/2020 [facility] DATE CREATED AUTHOR AUTHOR'S ORGANIZ ATION 01/01/2024 [facility] EPIC DATE CREATED AUTHOR AUTHOR'S ORGANIZ ATION 08/01/2024 [facility] DATE CREATED AUTHOR AUTHOR'S ORGANIZ ATION 08/09/2024 [facility] Reason for Visit (unrecogniz ed section and content) Reason Onset Date Comments Med Refill 05/14/2024 Reason Comments Anxiety 6 month medication Reason Onset Date Comments Med Refill 08/11/2024 Reason Comments Med Refill Reason Onset Date Comments Med Refill 11/13/2024 Care Teams (unrecognized sec tion and content) Biological Chemist Relationship Specialty Start Date End Date Moon Maldonado MD [address] [place] [address], [address] [place] [address] PCP - General Pediatrics 03/18/17 Biological Chemist Relationship Specialty Start Date End Date Moon Maldonado MD [address] [place] [address], [address] [place] [address] PCP - General Pediatrics 03/18/17 Biological Chemist Relationship Specialty Start Date End Date Moon Maldonado MD [address] [place] [address], [address] [place] [address] PCP - General Pediatrics 03/18/17 Biological Chemist Relationship Specialty Start Date End Date Moon Maldonado MD [address] [place] [address], [address] [place] [address] PCP - General Pediatrics 03/18/17 Biological Chemist Relationship Specialty Start Date End Date Moon Maldonado MD [address] [place] [address], [address] [place] [address] PCP - General Pediatrics 03/18/17 Biological Chemist Relationship Specialty Start Date End Date Moon Maldonado MD [address] [place] [address], [address] [place] [address] PCP - General Pediatrics 03/18/17 Biological Chemist Relationship Specialty Start Date End Date Moon Maldonado MD [address] [place] [address], [address] [place] [address] PCP - General Pediatrics 03/18/17 Biological Chemist Relationship Specialty Start Date End Date Moon Maldonado MD PCP - General Family Medicine 12/27/22 FOR RECORDS PERTAINING TO PATIENTS WHO ARE OR HAVE BEEN ENROLLED IN A CHEMICAL DEPENDENCY/SUBSTANCEABUSE PROGRAM, SOME INFORMATION MAY BE OMITTED. This clinical summary was aggregated from multiple sources. Caution should be exercised in using it in the provision of clinical care. This summary normalizes information from multiple sources, and as a consequence, information in this document may materially change the coding, format and clinical context of patient data. In addition, data may be omitted in some cases. CLINICAL DECISIONS SHOULD BE BASED ON THE PRIMARY CLINICAL RECORDS. [facility] [employer] [facility]. provides no warranty or guarantee of the accuracy or completeness of information in this document.
[2025-01-11 10:08] LABS: Age Gdln ACOG Testing Note (.); IGP, Aptima HPV, rfx 16/18,45 Note (.)
== END 2025-01-05 18:55 | disposition home or self-care (01) ==
LOC: LAB 18:54
PROVIDERS: Visit Provider Obstetrics & Gynecology
DX: Z01.419 Encounter for gynecological examination (general) (routine) without abnormal findings (principal)
CPT/HCPCS: 87624; 88175